=== PATIENT | female | born 1980 | race Two or more races ===

== ENCOUNTER 2020-08-04 16:12 | Emergency (ER) | payer SELFPAY ==
--- NOTE | 2020-08-04 17:43 | ED_ITS ---
HPI - General Adult General Chief complaint: Wound/Laceration <AZALIA Knight Last Filed: 08/04/20 18:24> Stated complaint: Suture Removal <AZALIA Knight Last Filed: 08/04/20 18:24> Time Seen by Provider: 08/04/20 17:42 <AZALIA Knight Last Filed: 08/04/20 18:24> Source: patient <AZALIA Knight Last Filed: 08/04/20 18:24> Mode of arrival: ambulatory <AZALIA Knight Last Filed: 08/04/20 18:24> Limitations: no limitations <AZALIA Knight Last Filed: 08/04/20 18:24> History of Present Illness HPI narrative: Had jose placed 10 days ago in head. No complaints. Here for removal. <AZALIA Knight Last Filed: 08/04/20 18:24> Onset (ago): week(s) <AZALIA Knight Last Filed: 08/04/20 18:24> Location: head <AZALIA Knight Last Filed: 08/04/20 18:24> Radiation: non-radiation <AZALIA Knight Last Filed: 08/04/20 18:24> Associated symptoms: denies other symptoms <AZALIA Knight Last Filed: 08/04/20 18:24> Related Data Allergies/adverse reactions: Allergies Allergy/AdvReac Type Severity Reaction Status Date / Time animal dander [PET DANDER] Allergy Unknown UNKNOWN Verified 08/04/20 17:54 FRUIT,FRESH Allergy Unknown THROAT ITCH Uncoded 07/17/20 16:19 nuts/ peanuts Allergy Unknown per Uncoded 06/22/19 00:00 allergy testing pollen/dust Allergy Unknown per Uncoded 06/22/19 00:00 allergy testing seasonal Allergy Unknown per Uncoded 06/22/19 00:00 allergy testing seasonal /fruits/ vegetables Allergy Unknown Unknown Uncoded 08/04/20 17:54 SEASONAL ALLERGIES Allergy Unknown UNKNOWN Uncoded 07/17/20 16:19 <Kajal Chopra NP - Last Filed: 08/04/20 18:24> Review of Systems Review of Systems: Yes all other systems are reviewed and are negative <Kajal Chopra NP - Last Filed: 08/04/20 18:24> Constitutional: Constitutional: Reports no additional constitutional complaints, Denies chills, Denies fever(s) and Denies weakness <Kajal Chopra NP - Last Filed: 08/04/20 18:24> Eyes: Eyes: Reports no additional eye complaints and Denies change in vision <Kajal Chopra NP - Last Filed: 08/04/20 18:24> ENT: Reports system reviewed and no additional complaints, except as documented, Denies nasal congestion and Denies nasal discharge <Kajal barton NP - Last Filed: 08/04/20 18:24> Cardiovascular: Cardiovascular: Reports no additional cardiovascular comp laints, Denies chest pain, Denies leg edema and Denies dyspnea <Kajal Chopra NP - Last Filed: 08/04/20 18:24> Respiratory: Respiratory: Reports no additional respiratory complaints, Denies cough and Denies dyspnea <Kajal Chopra NP - Last Filed: 08/04/20 18:24> Gastrointestinal: Gastrointestinal: Reports no additional gastrointestinal complaints, Denies abdominal pain, Denies diarrhea, Denies nausea and Denies vomiting <Kajal Chopra NP - Last Filed: 08/04/20 18:24> Musculoskeletal: Musculoskeletal: Reports no additional musculoskeletal complaints, Denies numbness and Denies tingling <Kajal Chopra NP - Last Filed: 08/04/20 18:24> Integumentary/Breasts: Skin/Breast: Reports system reviewed and no additional complaints, except as docu and Denies rash <Kajal Chopra NP - Last Filed: 08/04/20 18:24> Neurologic: Reports system reviewed and no additional complaints, except as documented, Denies numbness, Denies tingling and Denies weakness <Kajal Chopra NP - Last Filed: 08/04/20 18:24> PMFSH Past Medical History Attestation statement: The following information was validated with the patient. <Kajal Chopra NP - Last Filed: 08/04/20 18:24> Source: obtained from family and nursing notes reviewed <Kajal Chopra NP - Last Filed: 08/04/20 18:24> Social History Social History: Social History Advance Directives: No Advance Directives Information Provided: Yes <Kajal Chopra NP - Last Filed: 08/04/20 18:24> Physical Exam Vital Signs and I&O and Narrative: Vital Signs and I&O: Vital Signs Temp 97.6 F 08/04/20 17:55 Pulse 91 08/04/20 17:55 Resp 16 08/04/20 17:55 BP 136/79 08/04/20 17:55 Pulse Ox 99 08/04/20 17:55 Intake & Output 08/04/20 08/04/20 08/05/20 06:59 18:59 06:59 Weight 75.75 kg Body Mass Index 36.1 <Kajal Chopra NP - Last Filed: 08/04/20 18:24> Vital Signs and I&O: Vital Signs Temp 97.6 F 08/04/20 17:55 Pulse 91 08/04/20 17:55 Resp 16 08/04/20 17:55 BP 136/79 08/04/20 17:55 Pulse Ox 99 08/04/20 17:55 Intake & Output 08/04/20 08/04/20 08/05/20 06:59 18:59 06:59 Weight 75.75 kg Body Mass Index 36.1 <Lane Devi DO - Last Filed: 08/05/20 02:16> Const: General: cooperative, healthy appearing, comfortable and no acute distress <Kajal Chopra NP - Last Filed: 08/04/20 18:24> Orientation/consciousness: patient oriented x3 <Kajal Chopra NP - Last Filed: 08/04/20 18:24> Limitations: no limitations <Kajal Chopra NP - Last Filed: 08/04/20 18:24> HENMT: Head: Yes other (2 jose present occip. no redness, drainage or fluctuance or tenderness ) <Kajal Chopra NP - Last Filed: 08/04/20 18:24> Ears: hearing grossly normal bilaterally <Kajal Chopra NP - Last Filed: 08/04/20 18:24> General nose exam: Normal external nose present <Kajal Chopra NP - Last Filed: 08/04/20 18:24> Face and sinus: Yes normal facial exam <Kajal Chopra NP - Last Filed: 08/04/20 18:24> Mouth: Normal oral and palatal mucosa present <Kajal Chopra NP - Last Filed: 08/04/20 18:24> Throat: Yes posterior oropharynx normal <Kajal Chopra NP - Last Filed: 08/04/20 18:24> Eyes: General: appearance normal, both eyes and all related structures <Kajal Chopra NP - Last Filed: 08/04/20 18:24> Pupils: Equal, round and reactive pupils present <Kajal Chopra NP - Last Filed: 08/04/20 18:24> Neck: Neck: Yes normal visual inspection <Kajal Chopra NP - Last Filed: 08/04/20 18:24> Chest: Chest palpation & inspection: normal inspection of the chest <Kajal Chopra NP - Last Filed: 08/04/20 18:24> Resp: Effort & Inspection: normal respiratory effort <Kajal Chopra NP - Last Filed: 08/04/20 18:24> Cardio: Rate: regular rate <Kajal Chopra NP - Last Filed: 08/04/20 18:24> Rhythm: regular rhythm <Kajal Chopra NP - Last Filed: 08/04/20 18:24> Neuro: General: patient oriented x3 <Kajal Chopra NP - Last Filed: 08/04/20 18:24> Cranial nerves: Yes Equal, round and reactive pupils present <Kajal Chopra NP - Last Filed: 08/04/20 18:24> Procedures Procedure Narrative Procedure Narrative: 2 jose removed from scalp with no issues. <Kajal Chopra NP - Last Filed: 08/04/20 18:24> Discharge Plan Discharge Clinical Impression: Removal of staple <Kajal Chopra NP - Last Filed: 08/04/20 18:24> Patient Disposition: Home, Self-Care <Kajal Chopra NP - Last Filed: 08/04/20 18:24> Instructions: Staple Care (ED) <Kajal Chopra NP - Last Filed: 08/04/20 18:24> Additional Instructions: You may wash your head normal <Kajal Chopra NP - Last Filed: 08/04/20 18:24> Referrals: ED Physician,Generic [Emergency Provider] - 2 days <Kajal Chopra NP - Last Filed: 08/04/20 18:24> Interventions: ED Discharge Assessment Last Done: 08/04/20 18:39 <Kajal Chopra NP - Last Filed: 08/04/20 18:24> Discharge Date/Time: 08/04/20 18:39 <Kajal Chopra NP - Last Filed: 08/04/20 18:24>
[2020-08-04 17:55] VITALS: BP 136/79; PULSE 91; RESP 16; TEMP 36.4; O2SAT 99; BMI 36.1
== END 2020-08-04 18:39 | disposition home or self-care (01) ==
LOC: HO.ED 18:23
DX: Z48.02 Encounter for removal of sutures (principal)
CPT/HCPCS: 99283

== ENCOUNTER 2021-05-07 10:51 | Emergency (ER) | payer OTHER, SELFPAY ==
[2021-05-07 11:00] VITALS: BP 130/81; PULSE 99; RESP 16; TEMP 36.9; O2SAT 98; BMI 36.3
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
[2021-05-07] MEDS: Acetaminophen 325 MG TABLET 975 MG PO (12:46)
[2021-05-07] MEDS: cephALEXin 500 MG CAPSULE PO (12:47)
[2021-05-07] MEDS: Silver Sulfadiazine 1 % Cream 20 GM TUBE 1 APPL TOPICAL (12:47)
== END 2021-05-07 13:25 | disposition home or self-care (01) ==
PROVIDERS: Emergency Provider Emergency Medicine
DX: T20.20XA Burn of second degree of head, face, and neck, unspecified site, initial encounter (principal); T20.10XA Burn of first degree of head, face, and neck, unspecified site, initial encounter; T21.31XA Burn of third degree of chest wall, initial encounter; T21.21XA Burn of second degree of chest wall, initial encounter; X03.3XXA Fall due to controlled fire, not in building or structure, initial encounter; Y93.9 Activity, unspecified; Y92.9 Unspecified place or not applicable; Y99.9 Unspecified external cause status
CPT/HCPCS: 99284

== ENCOUNTER 2021-05-09 08:54 | Emergency (ER) | payer OTHER, SELFPAY ==
[2021-05-09 09:25] VITALS: BP 125/77; PULSE 75; RESP 16; O2SAT 99; BMI 35.9
[2021-05-09] MEDS: oxyCODONE HCl Immed Release 5 MG TABLET PO (09:41)
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
--- NOTE | 2021-05-09 10:18 | PC.NURSE ---
Pt medicae with oxy po at 0941. removed facial suture and applied steri strips to site. Pt states that she has pain medication at home.
== END 2021-05-09 10:19 | disposition home or self-care (01) ==
PROVIDERS: Emergency Provider Emergency Medicine
DX: Z48.02 Encounter for removal of sutures (principal); S01.81XD Laceration without foreign body of other part of head, subsequent encounter; W19.XXXD Unspecified fall, subsequent encounter
CPT/HCPCS: 99283

== ENCOUNTER 2021-05-13 13:38 | Outpatient (RCR) | payer OTHER, SELFPAY | END 2021-06-25 10:47 | disposition home or self-care (01) | LOC: HO.WCC 13:38 | PROVIDERS: Visit Provider Surgery | DX: T21.21XD Burn of second degree of chest wall, subsequent encounter (principal); T31.0 Burns involving less than 10% of body surface | CPT/HCPCS: 16020; 99211; 99212 ==

== ENCOUNTER 2021-05-16 09:47 | Emergency (ER) | payer OTHER, SELFPAY ==
[2021-05-16 09:50] VITALS: BP 120/66; PULSE 98; RESP 16; TEMP 36.4; O2SAT 99; BMI 36.1
[2021-05-16 10:04] VITALS: BP 130/75; PULSE 99; O2SAT 98
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
[2021-05-16] MEDS: Silver Sulfadiazine 1 % Cream 20 GM TUBE 1 APPL TOPICAL (11:44)
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
[2021-05-16] MEDS: Bacitracin Oint 14 GM TUBE 1 APPL TOPICAL (12:14)
== END 2021-05-16 12:18 | disposition home or self-care (01) ==
PROVIDERS: Emergency Provider Emergency Medicine
DX: T20.10XD Burn of first degree of head, face, and neck, unspecified site, subsequent encounter (principal); T21.11XD Burn of first degree of chest wall, subsequent encounter; X02.0XXD Exposure to flames in controlled fire in building or structure, subsequent encounter
CPT/HCPCS: 16020; 99284

== ENCOUNTER 2021-05-18 00:45 | Emergency (ER) | payer OTHER, SELFPAY ==
[2021-05-18 00:48] VITALS: BP 122/74; PULSE 90; RESP 16; TEMP 36.9; O2SAT 100; BMI 36.1
[2021-05-18 01:29] LABS: IDNOW Serial# 08D9AD1C; Strep A Nucleic Acid Negative (Negative)
[2021-05-18 01:37] LABS: COVID-19 Test Negative (Negative); IDNOW Serial# 9DD0AD1C
--- NOTE | 2021-05-18 01:57 | ED_ITS ---
HPI - General Adult General Chief complaint: General Medical Stated complaint: ear/throat pain Time Seen by Provider: 05/18/21 01:57 Source: patient Mode of arrival: ambulatory History of Present Illness HPI narrative: 40-year-old female presents with complaints of right ear and throat pain that started today and patient states has been associated with chills but denies shortness of breath, cough. Related Data Previous Rx's Medication Instructions Recorded bacitracin 1 appl TOPICAL BID #14 g 05/07/21 ibuprofen 600 mg PO Q6H PRN #20 tab 05/07/21 oxycodone-acetaminophen [Percocet] 1 tab PO Q6H PRN #14 tab 05/07/21 silver sulfadiazine [Silvadene] 1 appl TOPICAL BID #50 g 05/07/21 bacitracin 1 appl TOPICAL BID #28 g 05/16/21 Allergies Allergy/AdvReac Type Severity Reaction Status Date / Time animal dander [PET DANDER] Allergy Unknown UNKNOWN Verified 05/16/21 09:50 FRUIT,FRESH Allergy Unknown THROAT ITCH Uncoded 07/17/20 16:19 nuts/ peanuts Allergy Unknown per Uncoded 06/22/19 00:00 allergy testing pollen/dust Allergy Unknown per Uncoded 06/22/19 00:00 allergy testing seasonal Allergy Unknown per Uncoded 06/22/19 00:00 allergy testing seasonal /fruits/ vegetables Allergy Unknown Unknown Uncoded 08/04/20 17:54 SEASONAL ALLERGIES Allergy Unknown UNKNOWN Uncoded 07/17/20 16:19 Review of Systems Review of Systems: Pertinent positives and negatives as stated in HPI 10 point review of systems is otherwise negative. PMFSH Past Medical History Source: nursing notes reviewed Medical History No known health problems Social History Social History Alcohol intake: current Alcohol intake frequency: holidays/special occasions only Patient Tobacco Use Status: Never used Tobacco Advance Directives: No Advance Directives Information Provided: No Patient : No Physical Exam Vital Signs: Vital Signs: Last Vital Signs Temp 98.5 F 05/18/21 00:48 Pulse 90 05/18/21 00:48 Resp 16 05/18/21 00:48 BP 122/74 05/18/21 00:48 Pulse Ox 100 05/18/21 00:48 Body Mass Index 36.1 VITAL SIGNS: Reviewed. GENERAL: Well developed, well nourished, in no acute distress. HEAD: Normocephalic/atraumatic EYES: PERRLA, EOMI EARS: Ext canals without abnormality, TMs non-bulging and non-erythematous NOSE: Nares patent bilateral OROPHARYNX: no oral lesions noted, posterior pharynx erythematous without noted tonsillar enlargement/erythema/exudates NECK: Supple, no adenopathy LUNGS: Normal breath sounds. No adventitious sounds or accessory muscle use. SpO2<100> CARDIOVASCULAR: Regular rate and rhythm without noted murmurs ABDOMEN: Soft, non-tender, non-distended with bowel sounds. SKIN: Inspection of the skin reveals no rashes NEUROLOGIC: Alert and oriented x 4. Strength and sensation to light touch were grossly intact x 4. Course Course Course Narrative: 40-year-old female with history and clinical presentation consistent with pharyngitis. Review of all investigations negative for acute findings and no clinical indication for AOM, retropharyngeal abscess. All results discussed with patient at bedside. Medical Decision Making Lab Data Labs: Lab Results 05/18/21 05/18/21 Range/Units 01:12 01:12 COVID-19 (ALEXIS) Negative (Negative) COVID-19 Clin Com See Note S. pyogenes GrpA EMMANUEL Negative (Negative) Discharge Plan Discharge Clinical Impression: Viral pharyngitis Patient Disposition: Home, Self-Care Instructions: Pharyngitis (ED) Additional Instructions: 1. Resume all home medications as prescribed. 2. Recommend saline gargles (mixed together table salt with warm tap water) gargle for 5 minutes, recommend doing this twice a day for 3 days. 3. [id number] Tylenol/ibuprofen as needed for pain control as well as temperatures greater than 100.4. 4. Follow-up with your primary care provider in the next 2-3 days for re- evaluation and further outpatient management. Return to the ER for acute worsening of your symptoms. Prescriptions: No Action bacitracin 500 unit/gram ointment 1 appl topical BID Qty: 14 RF: 0 ibuprofen 600 mg tablet 600 mg PO Q6H PRN (Reason: pain) Qty: 20 RF: 0 oxycodone-acetaminophen [Percocet] 5-325 mg tablet 1 tab PO Q6H PRN (Reason: pain) Qty: 14 RF: 0 silver sulfadiazine [Silvadene] 1 % cream 1 appl topical BID Qty: 50 RF: 0 bacitracin 500 unit/gram ointment 1 appl topical BID Qty: 28 RF: 1 Referrals: Physician,None [Primary Care Provider] - 2 days
== END 2021-05-18 02:11 | disposition home or self-care (01) ==
PROVIDERS: Emergency Provider Student in an Organized Health Care Education/Training Program
DX: J02.8 Acute pharyngitis due to other specified organisms (principal); Z20.822 Contact with and (suspected) exposure to COVID-19
CPT/HCPCS: 36415; 87635; 87651; 99283

== ENCOUNTER 2021-08-24 14:59 | Emergency (ER) | payer OTHER, SELFPAY ==
[2021-08-24 16:09] VITALS: BP 142/89; PULSE 90; RESP 16; TEMP 36.9; O2SAT 100; BMI 35.6
--- NOTE | 2021-08-24 17:05 | ED_ITS ---
HPI - General Adult General Chief complaint: Allergic Reaction Stated complaint: allergic reaction Source: patient Mode of arrival: ambulatory Limitations: no limitations History of Present Illness HPI narrative: Patient presents to the ED for resolved allergic reaction. Patient states around 13:00 she ate her usual salad with further cheese dressing and chicken from a stop and shop and all the sudden she started having hives on the face, sensation of throat closing, and hives on her arm. Patient states she took Benadryl and symptoms quickly resolved. She does not know if there are any new ingredients placed in salad . Patient pearly denies any itching, rash, shortness of breath, lip swelling, or sensation of throat closing. Related Data Previous Rx's Medication Instructions Recorded bacitracin 500 unit/gram topical 1 appl TOPICAL BID #14 g 05/07/21 ointment ibuprofen 600 mg tablet 600 mg PO Q6H PRN #20 tab 05/07/21 oxycodone-acetaminophen 5 mg-325 1 tab PO Q6H PRN #14 tab 05/07/21 mg tablet (Percocet) silver sulfadiazine 1 % topical 1 appl TOPICAL BID #50 g 05/07/21 cream (Silvadene) bacitracin 500 unit/gram topical 1 appl TOPICAL BID #28 g 05/16/21 ointment diphenhydramine HCl 25 mg capsule 25 mg PO TID PRN #30 cap 08/24/21 (Benadryl) famotidine 20 mg tablet (Pepcid) 20 mg PO BID 7 Days #14 tab 08/24/21 prednisone 20 mg tablet 60 mg PO DAILY 5 Days #15 tab 08/24/21 Allergies Allergy/AdvReac Type Severity Reaction Status Date / Time animal dander [PET DANDER] Allergy Unknown UNKNOWN Verified 05/16/21 09:50 FRUIT,FRESH Allergy Unknown THROAT ITCH Uncoded 07/17/20 16:19 nuts/ peanuts Allergy Unknown per Uncoded 06/22/19 00:00 allergy testing pollen/dust Allergy Unknown per Uncoded 06/22/19 00:00 allergy testing seasonal Allergy Unknown per Uncoded 06/22/19 00:00 allergy testing seasonal /fruits/ vegetables Allergy Unknown Unknown Uncoded 08/04/20 17:54 SEASONAL ALLERGIES Allergy Unknown UNKNOWN Uncoded 07/17/20 16:19 Review of Systems Review of Systems: Yes all other systems are reviewed and are negative Constitutional: Constitutional: Reports as per HPI and Reports no additional constitutional complaints Eyes: Eyes: Reports as per HPI and Reports no additional eye complaints ENT: Reports system reviewed and no additional complaints, except as documented and Reports as per HPI Cardiovascular: Cardiovascular: Reports as per HPI and Reports no additional cardiovascular complaints Respiratory: Respiratory: Reports as per HPI and Reports no additional respiratory complaints Gastrointestinal: Gastrointestinal: Reports as per HPI and Reports no additional gastrointestinal complaints Genitourinary: Genitourinary: Reports no additional female genitourinary complaints and Reports as per HPI Musculoskeletal: Musculoskeletal: Reports no additional musculoskeletal complaints and Reports as per HPI Integumentary/Breasts: Skin/Breast: Reports system reviewed and no additional complaints, except as docu and Reports as per HPI Comments: resolved Allergic reaction Neurologic: Reports system reviewed and no additional complaints, except as documented and Reports as per HPI Psychiatric: Psychiatric: Reports no additional psychiatric complaints and Reports as per HPI [facility] Past Medical History Medical History No known health problems Social History Social History Alcohol intake: current Alcohol intake frequency: holidays/special occasions only Patient Tobacco Use Status: Never used Tobacco Advance Directives: No Advance Directives Information Provided: No Physical Exam Vital Signs: Vital Signs: Last Vital Signs Temp 98.4 F 08/24/21 16:09 Pulse 90 08/24/21 16:09 Resp 16 08/24/21 16:09 BP 142/89 H 08/24/21 16:09 Pulse Ox 100 08/24/21 16:09 Body Mass Index 35.6 Const: General: cooperative, healthy appearing, comfortable, no acute distress, well developed, alert, awake and Physically active Orienta tion/consciousness: patient oriented x3 HENMT: Other: Negative for any lip swelling, eye swelling, tongue swelling, or uvular swelling. Uvula is midline. Patient is speaking in full sentences and not using secondary muscles. Negative for hives on face. Head: Yes normal to inspection, Yes No palpable skull fracture present, Yes normocephalic, Yes atraumatic, No abrasion, No Acrocyanosis present, No Cotter's sign, No contusion, No cranial bruits, No hematoma, No laceration, No occipital foramen tenderness, No palpable skull fracture, No raccoon eyes, No scalp lesion, No scalp tenderness, No Temporal artery tenderness present and No periorbital ecchymosis Eyes: General: appearance normal, both eyes and all related structures Neck: Neck: Yes normal visual inspection, Yes full ROM, Yes no lymphadenopathy, Yes no meningeal signs, Yes trachea midline, Yes supple and No tender Chest: Chest palpation & inspection: normal inspection of the chest and normal palpation of entire chest wall Resp: Effort & Inspection: normal respiratory effort and able to speak in complete sentences Auscultation: clear to auscultation bilaterally Cardio: Jugular venous distension: no JVD Heart sounds: S1 normal heart sound present and S2 normal heart sound present GI: Inspection: Yes normal to inspection and No abdominal wall ecchymosis Palpation (GI): Soft to palpation, not firm, nontender, no guarding and not rigid : General: No CVA tenderness and Yes no CVA tenderness Back/Spine/Pelvis: Back: no CVA tenderness, No CVA tenderness and No back tenderness Skin: Other: Negative for any hives. Patient states hives completely resolved after taking Benadryl General skin exam: no rashes or lesions noted and elasticity normal Neuro: General: patient oriented x3, gait normal, no meningeal signs and CN's II-XI intact bilaterally Cranial nerves: Yes CN's II-XII intact bilaterally Extrem: General: Yes normal to inspection and Yes full ROM Psych: Appearance: grossly normal, well kempt and not disheveled Course Course Course Narrative: Resolved allergic reaction Reevaluation(s) Reevaluation #1: Patient will be discharged with Benadryl, Pepcid, and steroids Time: 17:17 Medical Decision Making [facility] Narrative Medical decision making narrative: Allergic reaction Discharge Plan Discharge Clinical Impression: Allergic reaction Patient Disposition: Home, Self-Care Instructions: General Allergic Reaction (ED) Additional Instructions: You will be discharged with Benadryl, Pepcid, and steroids. Please follow-up with primary care provider. Return to ED immediately for any shortness of breath, lip swelling, tongue swelling, eye swelling, worsening rash, fever, chest pain chills, any other concerning symptoms. Prescriptions: New diphenhydramine HCl [Benadryl] 25 mg capsule 25 mg PO TID PRN (Reason: allergic reaction) Qty: 30 RF: 0 prednisone 20 mg tablet 60 mg PO DAILY 5 Days Qty: 15 RF: 0 famotidine [Pepcid] 20 mg tablet 20 mg PO BID 7 Days Qty: 14 RF: 0 No Action bacitracin 500 unit/gram ointment 1 appl topical BID Qty: 14 RF: 0 ibuprofen 600 mg tablet 600 mg PO Q6H PRN (Reason: pain) Qty: 20 RF: 0 oxycodone-acetaminophen [Percocet] 5-325 mg tablet 1 tab PO Q6H PRN (Reason: pain) Qty: 14 RF: 0 silver sulfadiazine [Silvadene] 1 % cream 1 appl topical BID Qty: 50 RF: 0 bacitracin 500 unit/gram ointment 1 appl topical BID Qty: 28 RF: 1 Stand Alone Forms: Work/School Release Print Language: Setswana
== END 2021-08-24 17:41 | disposition home or self-care (01) ==
PROVIDERS: Emergency Provider Internal Medicine
DX: T78.40XA Allergy, unspecified, initial encounter (principal); X58.XXXA Exposure to other specified factors, initial encounter
CPT/HCPCS: 99283

== ENCOUNTER 2024-04-06 09:39 | Outpatient (AMB) | payer OTHER, SELFPAY ==
[2024-04-06 10:04] VITALS: BP 110/60; PULSE 80; TEMP 36.1; O2SAT 99; BMI 35.5
--- NOTE | 2024-04-06 10:04 | AM.OFFWIN_ITS ---
Intake Vital Signs 04/06/24 10:04 Height 4 ft 9 in Weight 164 lb BMI 35.5 BP 110/60 Blood Pressure Location Lt brachial Position Sitting Pulse 80 Pulse Source Pulse Oximeter Temp 97.0 F Temp Source Temporal Artery Scan Pulse Oximetry (%) 99 Oxygen Delivery Method Room Air Intake Visit Reasons: EP Congestion/Diff breathing/headache Intake Note: pt is here today for congestion diff breathing headache started 1 week ago Patient Tobacco Use Status: Never used Tobacco Allergies animal dander [PET DANDER] Allergy (Unknown, Verified 04/06/24 10:18) UNKNOWN FRUIT,FRESH Allergy (Unknown, Uncoded 04/06/24 10:18) THROAT ITCH nuts/ peanuts Allergy (Unknown, Uncoded 04/06/24 10:18) per allergy testing pollen/dust Allergy (Unknown, Uncoded 04/06/24 10:18) per allergy testing seasonal Allergy (Unknown, Uncoded 04/06/24 10:18) per allergy testing seasonal /fruits/ vegetables Allergy (Unknown, Uncoded 04/06/24 10:18) Unknown SEASONAL ALLERGIES Allergy (Unknown, Uncoded 04/06/24 10:18) UNKNOWN Medication List - Last Reconciled 04/06/24 by Jia Cardona CNP No Known Home Meds Do you need a note to return to daycare/school/sports/work: No HPI HPI Comments History of Present Illness Details 43-year-old female [facility] [place] for complaint of congestion, difficulty breathing, and headache x1 week. She denies recent travel, exposure to known sick contact or covid. She reports nasal congestion, with maxillary and frontal sinus pressure, problematic cough that wakes her up at night and unable to cough up congestion. She denies fever, but admits to intermittent chills, she denies wheezing, CP, dizziness, abdominal pain, nausea, vomiting, changes in bowels or bladder. REPLACED BY [facility] Medical History No known health problems Social History Alcohol intake: current Alcohol intake frequency: holidays/special occasions only Patient Tobacco Use Status: Never used Tobacco Review of Systems Const All systems reviewed & are unremarkable except as noted in HPI and below Physical Exam Vital Signs: Last Vital Signs Temp 97.0 F 04/06/24 10:04 Pulse 80 04/06/24 10:04 BP 110/60 04/06/24 10:04 Pulse Ox 99 04/06/24 10:04 Oxygen Delivery Method Room Air 04/06/24 10:04 BMI result Body Mass Index 35.5 Const General: cooperative and no acute distress Nutritional Appearance: well nourished Orientation/consciousness: patient oriented x3 Limitations: no limitations HEENT Ears: hearing grossly normal bilaterally and TM's normal bilaterally General nose exam: Abnormal mucous membranes and turbinates present erythematous on the left Face and sinus: Yes sinus tenderness Mouth: moist mucous membranes Throat: Yes posterior oropharynx abnormal (mild erythema ) and Yes postnasal drainage Resp Effort & Inspection: normal respiratory effort, no audible wheezes, Actively coughing Quality: dry, no respiratory distress and not tachypneic Auscultation: clear to auscultation bilaterally, no rhonchi and no wheezes Cardio Jugular venous distension: no JVD Rate: regular rate Rhythm: regular rhythm Heart sounds: S1 normal heart sound present and S2 normal heart sound present GI Palpation (GI): Soft to palpation and nontender Auscultation: normal bowel sounds Skin General skin exam: no rashes or lesions noted and turgor normal Neuro General: patient oriented x3 Psych Appearance: well kempt Mental Status: mental status grossly normal Speech and movement: Normal speech and movement present Affect: normal affect Attitude: cooperative Assessment & Plan Assessment & Plan (1) Upper respiratory infection: Code(s): J06.9 - Acute upper respiratory infection, unspecified Qualifiers: URI type: unspecified URI Qualified Code(s): J06.9 - Acute upper respiratory infection, unspecified Plan: Upper respiratory infection most likely secondary to sinusitis secondary to allergies and increased pollen - Zithromax, 2 tabs po today, followed by 1 tab po x 4 days; encouraged to take with food to reduce GI upset - Encouraged to drink plenty of fluids, maintain hydration - Guaifenesin cough syrup for expectorant - Nasal Saline OTC for sinusitis Will return to walk-in clinic with any worsening or unresolved symptoms Medications: New guaifenesin (Cough Syrup) 200 mg (10 mL) PO Q4H 5 days PRN 1,000 mL 0RF cough J06.9 - Acute upper respiratory infection, unspecified azithromycin (Zithromax) For 250 mg dose pack: take 500 mg today (day 1), then 250 mg for 4 days (days 2-5) PO 5 days 6 tabs 0RF J06.9 - Acute upper respiratory infection, unspecified Discontinued silver sulfadiazine 1% (Silvadene) apply a 1.5 mm thickness Discontinued Reason: Patient no longer taking 1 appl topical BID 50 grams 0RF bacitracin Discontinued Reason: Patient no longer taking 1 appl topical BID 14 grams 0RF ibuprofen Discontinued Reason: Patient no longer taking 600 mg PO Q6H PRN 20 tabs 0RF pain oxycodone-acetaminophen 5-325 mg (Percocet) this medication causes drowsiness, no driving for 6 hours after taking Discontinued Reason: Patient no longer taking 1 tab PO Q6H PRN 14 tabs 0RF pain bacitracin Discontinued Reason: Stopped on Transfer 1 appl topical BID 28 grams 1RF diphenhydramine HCl (Benadryl) Discontinued Reason: Patient no longer taking 25 mg PO TID PRN 30 caps 0RF allergic reaction famotidine (Pepcid) Discontinued Reason: Stopped on Transfer 20 mg PO BID 7 days 14 tabs 0RF prednisone Discontinued Reason: Patient no longer taking 60 mg (3 x 20 mg) PO DAILY 5 days 15 tabs 0RF Coding Level of Care Code Est Pt Level 3 (16698) Diagnoses Upper respiratory tract infection, unspecified type J06.9 URI type: unspecified URI
== END 2024-04-06 10:29 | disposition home or self-care (01) ==
PROVIDERS: PCP Internal Medicine; Visit Provider Nurse Practitioner Acute Care
DX: J06.9 Acute upper respiratory infection, unspecified (principal)
CPT/HCPCS: 99213

== ENCOUNTER 2024-04-27 09:50 | Outpatient (AMB) | payer OTHER, SELFPAY ==
[2024-04-27 10:58] VITALS: BP 108/64; PULSE 74; O2SAT 100; BMI 35.3
--- NOTE | 2024-04-27 10:58 | A.OFFVIS_ITS ---
Vital Signs 04/27/24 10:58 Height 4 ft 9 in Weight 163 lb 2.273 oz BMI 35.3 BP 108/64 Blood Pressure Location Rt brachial Position Sitting Pulse 74 Pulse Source Pulse Oximeter Pulse Oximetry (%) 100 Oxygen Delivery Method Room Air Intake Visit Reasons: Shoulder pain/cm Intake Note: Pt presents today with complaints of bl shoulder pain , worse on right. She has had cortisone injections in the past. Client Insights Consultant Required: No Accompanied by: Daughter Allergies animal dander [PET DANDER] Allergy (Unknown, Verified 04/27/24 11:04) UNKNOWN FRUIT,FRESH Allergy (Unknown, Uncoded 04/27/24 11:04) THROAT ITCH nuts/ peanuts Allergy (Unknown, Uncoded 04/27/24 11:04) per allergy testing pollen/dust Allergy (Unknown, Uncoded 04/27/24 11:04) per allergy testing seasonal Allergy (Unknown, Uncoded 04/27/24 11:04) per allergy testing seasonal /fruits/ vegetables Allergy (Unknown, Uncoded 04/27/24 11:04) Unknown SEASONAL ALLERGIES Allergy (Unknown, Uncoded 04/27/24 11:04) UNKNOWN Medication List - Last Reconciled 04/27/24 by Young Tate MD acetaminophen (Tylenol Extra Strength) 500 mg PO Q6H PRN azithromycin (Zithromax) For 250 mg dose pack: take 500 mg today (day 1), then 250 mg for 4 days (days 2-5) PO 5 days guaifenesin (Cough Syrup) 200 mg (10 mL) PO Q4H PRN 5 days HPI Comments Details: This is a 43-year-old female who presents for evaluation of bilateral shoulder pain, worse on the right. She states that she has had this shoulder pain about 9 years. Worse with activity. She does not recall any trauma or overuse of her shoulder. She stated that she has to PT in the past and it never helped. Steroid injections provide relief for about 3 months. Her last shoulder injection was about 4 months ago. She tries to space it out as much as possible. She denies any other joint pain or swelling. [facility] Medical History No known health problems Social History Alcohol intake: current Alcohol intake frequency: holidays/special occasions only Patient Tobacco Use Status: Never used Tobacco Review of Systems [facility]ralgias and Reports limited range of motion Physical Exam Vital Signs: Last Vital Signs Pulse 74 04/27/24 10:58 BP 108/64 04/27/24 10:58 Pulse Ox 100 04/27/24 10:58 Oxygen Delivery Method Room Air 04/27/24 10:58 BMI result Body Mass Index 35.3 Const General: cooperative, healthy appearing and comfortable Nutritional Appearance: obese Orientation/consciousness: patient oriented x3 Limitations: no limitations HEENT Head: Yes normocephalic and Yes atraumatic Mouth: moist mucous membranes Resp Effort & Inspection: normal respiratory effort and able to speak in complete sentences Auscultation: clear to auscultation bilaterally Neuro General: patient oriented x3 Extrem Other: No active synovitis Nailfold capillaroscopy Normal range of motion of both shoulders Positive empty can test on the right Positive lift-off test on the right Negative infraspinatus test bilaterally Negative Speed's test bilaterally No knee pain with full flexion-extension Office Procedures Joint Injection/Drain Joint Injection/Drain Primary Site: right shoulder Prep: site was prepped using sterile technique and ethochloride spray was applied Injected: 40 mg of, Kenalog, with 1 mL of and 1% plain lidocaine Approach Used: posterolateral Procedure: The patient tolerated the procedure well Coding Details: Patient's consent. The right shoulder was prepped ChloraPrep and alcohol. The subacromial space was injected with 40 mg of triamcinolone and 1 cc of lidocaine. Patient tolerated the procedure well no apparent immediate side effects. 25930 - Large joint Procedure code (CPT) selection complete Assessment & Plan Assessment & Plan (1) Subacromial bursitis of right shoulder joint: Code(s): M75.51 - Bursitis of right shoulder Category: Medical Plan: This is a 43-year-old female who presents for evaluation of right shoulder pain. She states that she has had right shoulder pain since approximately 2014. She has gone to PT in the past and it never helped. Steroid injection helped for approximately 3 months. Last injection was done about 4 years ago. Requesting right shoulder injection. With patient's consent, right shoulder was injected with Kenalog today. Follow-up as needed Plan I spent 13 minutes reviewing patient's chart, evaluating patient, ordering diagnostic workup, counseling patient and documenting in the chart Orders: Orders AMB Joint Injection/Aspiration Today M75.51 - Bursitis of right shoulder Coding Level of Care Code Est Pt Level 3 (16283) Diagnoses Subacromial bursitis of right shoulder joint M75.51 CPT Codes Coding - 29020 Large joint: 63487 - Large joint ([id number])
== END 2024-04-27 11:40 | disposition home or self-care (01) ==
PROVIDERS: PCP Internal Medicine; Visit Provider Student in an Organized Health Care Education/Training Program
DX: M75.51 Bursitis of right shoulder (principal)
CPT/HCPCS: 20610; 99213

== ENCOUNTER → 2024-04-27 09:50 | Outpatient (BNVA) | payer OTHER, SELFPAY | PROVIDERS: PCP Internal Medicine; Visit Provider Student in an Organized Health Care Education/Training Program | DX: M75.51 Bursitis of right shoulder (principal) | CPT/HCPCS: 20610; 99212 ==

== ENCOUNTER 2024-06-27 17:17 | Emergency (ER) | payer OTHER, SELFPAY ==
--- NOTE | ~2024-06-27 | CT_ITS ---
EXAMINATION: CT HEAD WITHOUT CONTRAST CLINICAL INFORMATION: Headache. COMPARISON: None. TECHNIQUE: Contiguous axial imaging was performed from the skullbase to vertex without intravenous administration of contrast. This CT examination was performed using dose optimization techniques as appropriate, variously including the following: *Automated exposure control *Adjustment of mA and/or kV according to patient size (this includes techniques or standardized protocols for targeted exams where dose is matched to indication/reason for exam; i.e. extremities or head) *Use of iterative reconstruction technique DLP: 614 mGy-cm. FINDINGS: There is no evidence of acute intracranial hemorrhage or territorial infarction. No abnormal mass effect or midline shift is seen. Villalba to white matter differentiation is well preserved. No extra-axial fluid collections are identified. The ventricles are normal in size. There is no abnormal attenuation within the brain parenchyma. The osseous structures and soft tissues are normal. The mastoid air cells and visualized portions of the paranasal sinuses are well aerated. CT/CT head/brain wo IV con IMPRESSION: No acute intracranial pathology. Electronically signed by: Shay Van MD 06/27/2024 06:33 PM EDT
[2024-06-27 17:27] VITALS: BP 139/85; PULSE 105; RESP 17; TEMP 36.6; O2SAT 98; BMI 35.5
--- NOTE | 2024-06-27 17:35 | ED.GENADULT ---
HPI - General Adult General Chief complaint: General Medical Stated complaint: swelling and pain head/neck Time Seen by Provider: 06/27/24 21:50 Source: patient, RN notes reviewed and old records reviewed Mode of arrival: ambulatory Limitations: no limitations History of Present Illness ED Provider: Santiago YOUSSEF narrative: 43-year-old female presents for evaluation of left-sided neck pain and headache. Patient reports that last night she had a left posterior headache. This resolved on its own She woke up with pain in her left shoulder, left neck and still has pain to the left side of her head She endorses increased stress. Denies any heavy lifting, falls Denies any fevers, chills. Denies any ear pain, respiratory symptoms No other complaints or concerns at this time Related Data Home Medications ?Medication ?Instructions ?Recorded ?Confirmed acetaminophen 500 mg tablet 500 mg PO Q6H PRN 04/27/24 04/27/24 (Tylenol Extra Strength) Previous Rx's ?Medication ?Instructions ?Recorded azithromycin 250 mg tablet See Rx Instructions PO .COMPLEX 5 04/06/24 (Zithromax) days #6 tabs guaifenesin 100 mg/5 mL oral 200 mg (10 mL) PO Q4H PRN cough 5 04/06/24 liquid (Cough Syrup) days #1,000 mL cyclobenzaprine 10 mg tablet 10 mg PO TID PRN muscle spasm #20 06/27/24 tabs Allergies Allergy/AdvReac Type Severity Reaction Status Date / Time animal dander [PET DANDER] Allergy Unknown UNKNOWN Verified 06/27/24 17:30 FRUIT,FRESH Allergy Unknown THROAT ITCH Uncoded 06/27/24 17:30 nuts/ peanuts Allergy Unknown per Uncoded 06/27/24 17:30 allergy testing pollen/dust Allergy Unknown per Uncoded 06/27/24 17:30 allergy testing seasonal Allergy Unknown per Uncoded 06/27/24 17:30 allergy testing seasonal /fruits/ vegetables Allergy Unknown Unknown Uncoded 06/27/24 17:30 SEASONAL ALLERGIES Allergy Unknown UNKNOWN Uncoded 06/27/24 17:30 Review of Systems Constitutional: Constitutional: Denies body ache(s), Denies chills and Denies fever(s) Eyes: Eyes: Denies blurry vision ENT: Reports neck pain and Denies sore throat Cardiovascular: Cardiovascular: Denies chest pain and Denies dyspnea Respiratory: Respiratory: Denies cough and Denies dyspnea Gastrointestinal: Gastrointestinal: Denies abdominal pain Musculoskeletal: Musculoskeletal: Denies arthralgias, Denies joint swelling, Denies limited range of motion, Reports neck pain, Reports radiating pain into limb and Reports stiffness Integumentary/Breasts: Skin/Breast: Denies rash PMFSH Past Medical History Medical History No known health problems Social History Social History Alcohol intake: current Alcohol intake frequency: holidays/special occasions only Patient Tobacco Use Status: Never used Tobacco Do you have a plan to hurt others: No Plan Physical Exam ED Vital Signs: Vital Signs - 24 hr 06/27/24 17:27 06/27/24 21:49 Temperature 98 F 97.9 F Pulse Rate 105 H 88 Respiratory Rate 17 19 Blood Pressure 139/85 143/97 H Pulse Oximetry 98 99 Oxygen Delivery Method Room Air Room Air BMI result Body Mass Index 35.5 Const General: healthy appearing, comfortable, no acute distress, alert and awake Nutritional Appearance: well nourished Orientation/consciousness: patient oriented x3 HENMT Head: Yes normocephalic and Yes atraumatic Eyes Eyelids: Yes eyelids normal Conjunctivae: conjunctivae normal Sclerae: sclerae normal Corneas: corneas normal Pupils: Equal, round and reactive pupils present EOM: EOMs intact bilaterally Neck Other: Left cervical paraspinous muscle tenderness extending to the left posterior scalp, left trapezius muscle group tenderness. Neck: Yes full ROM Resp Effort & Inspection: normal respiratory effort, able to speak in complete sentences and not labored Skin General skin exam: elasticity normal Neuro General: patient oriented x3 Cranial nerves: Yes Equal, round and reactive pupils present and Yes Bilaterally intact EOM present Cognition (Neuro): normal cognition Extrem Other: Moving all extremities well without any obvious deformities Course Course Course Narrative: This is an RME done by NANCY Araiza: Additional HPI, ROS, PE not included below will be deferred to primary provider. 43 year old male presents w/ pain to top of head, reports woke up with this pain and it goes behind her L ear. reports a/c lightheadedness. Reports she feels tired aswell. Medical Decision Making Medical Decision Making MDM Narrative: 43-year-old female presents for evaluation of left-sided neck and headache. Clinically she has reproducible tenderness, she has full range of motion to the cervical spine but has pain when turning to the left. This is most consistent with a cervical strain/trapezius muscle group strain. CT scan of the brain was unremarkable, labs are unremarkable. We will discharge the patient with cyclobenzaprine and give her a dose of Toradol prior to discharge. Differential Diagnosis Differential Diagnoses: The differential diagnosis associated with the presentation includes Muscle strain Cervical strain Spasmodic torticollis Tension headache Lab Data [facility] Lab Attestation statement: I reviewed the patient's lab results. No leukocytosis. The patient does have a mild anemia that is normocytic. No electrolyte abnormalities. 06/27/24 17:50 06/27/24 17:50 Labs: Lab Results 06/27/24 Range/Units 17:50 WBC 6.2 (4.8-10.8) X10*3/uL RBC 4.16 L (4.20-5.50) X10*6/uL Hgb 11.9 L (12.0-16.0) g/dl Hct 36.8 L (37.0-47.0) % MCV 88.5 (80.0-98.0) fL MCH 28.6 (27.0-33.0) pg MCHC 32.3 (31.0-35.0) g/dl RDW 13.6 (11.0-16.0) % Plt Count 462 H (160-400) X10*3/uL MPV 9.8 (9.4-12.3) fL Immature Gran % (Auto) 0.3 (0.0-0.4) % Neut % (Auto) 67.4 (45-73) % Lymph % (Auto) 23.6 (20-40) % [place] % (Auto) 7.7 (2-11) % Eos % (Auto) 0.5 (0-4) % Baso % (Auto) 0.5 (0-2) % Lymph # (Auto) 1.5 (1.2-4.9) X10*3/uL [place] # (Auto) 0.5 (0.1-1.2) X10*3/uL Eos # (Auto) 0.0 (0.0-0.4) X10*3/uL Baso # (Auto) 0.0 (0.0-0.2) X10*3/uL Abs Immat Gran (auto) 0.02 (0.00-0.03) X10*3/uL Absolute Neuts (auto) 4.2 (2.0-8.3) x10*3/uL Absolute Nucleated RBC 0.000 (0.0-0.012) X10*3/uL Nucleated RBC % (auto) 0.0 (0.0-0.2) /100WBC ESR 7 (0-20) MM/HR Sodium 141 (135-145) mmol/L Potassium 4.5 (3.3-5.1) mmol/L Chloride 108 (96-108) mmol/L Carbon Dioxide 26 (22-29) mmol/L Anion Gap 12 (12-20) BUN 10 (9-16) mg/dL Creatinine 0.73 (0.5-1.4) mg/dL Estim Creat Clear Calc 83.0 Estimated GFR > 60 Random Glucose 107 (60-115) mg/dL Calcium 9.3 (8.4-10.2) mg/dL Magnesium 2.2 (1.6-2.6) mg/dL Total Bilirubin 0.2 (0.0-1.0) mg/dL AST 19 (5-31) U/L ALT 18 (0-31) U/L Alkaline Phosphatase 81 (39-117) U/L C-Reactive Protein 0.43 (< or = 0.50) mg/dL Total Protein 7.1 (6.5-8.0) g/dL Albumin 3.8 (3.5-5.0) g/dL Independent Interpretation I performed an independent interpretation of an: CT Scan Interpretation: CT/CT head/brain wo IV con IMPRESSION: No acute intracranial pathology. Electronically signed by: Shay Van MD 06/27/2024 06:33 PM EDT Discharge Plan Discharge Clinical Impression: Muscle strain of left shoulder region Patient Disposition: Home, Self-Care Instructions: Muscle Strain (ED) Additional Instructions: Your symptoms are most likely related to a muscle strain. I recommend using ibuprofen and Tylenol for pain You may use cyclobenzaprine as needed for muscle spasms This may make you drowsy, do not drink alcohol or drive after taking it I also recommend using warm compresses in you may use the tens unit that you mentioned you have at home Prescriptions: New cyclobenzaprine 10 mg tablet 10 mg PO TID PRN (Reason: muscle spasm) Qty: 20 0RF No Action guaifenesin [Cough Syrup] 100 mg/5 mL liquid 200 mg PO Q4H PRN (Reason: cough) 5 Days Qty: 1000 0RF azithromycin [Zithromax] 250 mg tablet See Rx Instructions PO .COMPLEX 5 Days Qty: 6 0RF Rx Instructions: For 250 mg dose pack: take 500 mg today (day 1), then 250 mg for 4 days (days 2-5) PO acetaminophen [Tylenol Extra Strength] 500 mg tablet 500 mg PO Q6H PRN Print Language: Mongolian
[2024-06-27 17:54] LABS: MANUAL DIFF FLAG NO
[2024-06-27 18:16] LABS: Alanine Aminotransferase 18 U/L (0-31); Albumin Level 3.8 g/dL (3.5-5.0); Alkaline Phosphatase 81 U/L (39-117); Anion Gap 12 (12-20); Aspartate Amino Transferase 19 U/L (5-31); Bilirubin Total 0.2 mg/dL (0.0-1.0); Blood Urea Nitrogen 10 mg/dL (9-16); C Reactive Protein 0.43 mg/dL (< or = 0.50); Calcium 9.3 mg/dL (8.4-10.2); Carbon Dioxide 26 mmol/L (22-29); Chloride 108 mmol/L (96-108); Estimated Glomerular Filt Rate > 60; Glucose Random 107 mg/dL (60-115); Magnesium 2.2 mg/dL (1.6-2.6); Potassium 4.5 mmol/L (3.3-5.1); Sodium 141 mmol/L (135-145); Total Protein 7.1 g/dL (6.5-8.0)
[2024-06-27 18:20] LABS: Basophils Percent Auto 0.5 % (0-2); Eosinophils Percent Auto 0.5 % (0-4); Hematocrit 36.8 % (37.0-47.0); Hemoglobin 11.9 g/dl (12.0-16.0); Imm Gran Abs Auto 0.02 X10*3/uL (0.00-0.03); Imm Gran Pct Auto 0.3 % (0.0-0.4); Lymphocytes Absolute Auto 1.5 X10*3/uL (1.2-4.9); Lymphocytes Percent Auto 23.6 % (20-40); Mean Corpuscular HGB Conc 32.3 g/dl (31.0-35.0); Mean Corpuscular Hemoglobin 28.6 pg (27.0-33.0); Mean Corpuscular Volume 88.5 fL (80.0-98.0); Mean Platelet Volume 9.8 fL (9.4-12.3); Monocytes Absolute Auto 0.5 X10*3/uL (0.1-1.2); Monocytes Percent Auto 7.7 % (2-11); Neutrophils Absolute Auto 4.2 x10*3/uL (2.0-8.3); Neutrophils Percent Auto 67.4 % (45-73); Platelet Count 462 X10*3/uL (160-400); Red Blood Count 4.16 X10*6/uL (4.20-5.50); Red Cell Distribution Width 13.6 % (11.0-16.0); White Blood Count 6.2 X10*3/uL (4.8-10.8)
[2024-06-27 18:47] LABS: Erythrocyte Sedimentation Rate 7 MM/HR (0-20)
[2024-06-27 21:49] VITALS: BP 143/97; PULSE 88; RESP 19; TEMP 36.6; O2SAT 99
[2024-06-27 22:20] VITALS: BP 143/90; PULSE 84; RESP 18; TEMP 36.6; O2SAT 99
[2024-06-27] MEDS: Cyclobenzaprine HCl 10 MG TABLET PO (22:20)
[2024-06-27] MEDS: Ketorolac Tromethamine 30 MG/ML VIAL IM (22:20)
[2024-06-27 22:29] VITALS: BP 143/90; PULSE 84; RESP 18; TEMP 36.6; O2SAT 99
== END 2024-06-27 22:30 | disposition home or self-care (01) ==
PROVIDERS: Physician Assistant; Emergency Provider Emergency Medicine; PCP Internal Medicine
DX: S46.912A Strain of unspecified muscle, fascia and tendon at shoulder and upper arm level, left arm, initial encounter (principal); X58.XXXA Exposure to other specified factors, initial encounter; Y93.9 Activity, unspecified; Y92.9 Unspecified place or not applicable; Y99.9 Unspecified external cause status
CPT/HCPCS: 36415; 70450; 80053; 83735; 85025; 85652; 86140; 96372; 99283; 99284; J1885

== ENCOUNTER 2024-07-31 09:21 | Outpatient (AMB) | payer OTHER, SELFPAY ==
--- NOTE | 2024-07-31 09:42 | MHC.PC.OV ---
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 Intake Note: New patient visit Senior [employer] Developer Required: No Allergies animal dander [PET DANDER] Allergy (Unknown, Verified 07/31/24 09:42) UNKNOWN FRUIT,FRESH Allergy (Unknown, Uncoded 07/31/24 09:42) THROAT ITCH nuts/ peanuts Allergy (Unknown, Uncoded 07/31/24 09:42) per allergy testing pollen/dust Allergy (Unknown, Uncoded 07/31/24 09:42) per allergy testing seasonal Allergy (Unknown, Uncoded 07/31/24 09:42) per allergy testing seasonal /fruits/ vegetables Allergy (Unknown, Uncoded 07/31/24 09:42) Unknown SEASONAL ALLERGIES Allergy (Unknown, Uncoded 07/31/24 09:42) UNKNOWN Tobacco use date assessed: 07/31/24 Dental Screening Dental Screen Date: 07/31/24 Did you have a dental visit in the last 12 months?: No Did you have a dental problem in the last 6 months where you did not have access to dental care?: Yes Was dental information given to patient?: Patient has dentist (on a waiting list) HPI HPI Comments History of Present Illness Details This is a 43-year-old female with a past medical history of shoulder pain, joint and muscle pain, anemia presenting to [facility] care MSK: Continues to have diffuse pain. Shoulders, back, knees hips. She has seen rheumatology. Received injections over the summer. She feels that her body hurts all the time. Family history of arthritis, fibromyalgia. History of anemia. Denies shortness of breath Trouble sleeping -takes advil pm, melatonin prn. ROS see HPI PHYSICAL EXAM: GENERAL: Alert and oriented x 3. NAD EYES: EOMI. Anicteric. HENT: Moist mucous membranes. No scleral icterus. No cervical lymphadenopathy. LUNGS: Clear to auscultation bilaterally. CARDIOVASCULAR: Regular rate and rhythm. No murmur. No JVD. ABDOMEN: Soft, non-tender +bs EXTREMITIES: No edema. Non-tender. SKIN: No rashes or lesions. Warm. NEUROLOGIC: No focal neurological deficits. CN II-XII grossly intact PSYCHIATRIC: Cooperative. 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 1. Little interest or pleasure in doing things: not at all 2. Feeling down, depressed, or hopeless: several days 3. Trouble falling or staying asleep, or sleeping too much: nearly every day 4. Feeling tired or having little energy: more than half the days 5. Poor appetite or overeating: nearly every day 6. Feeling bad about yourself - or that you are a failure or have let yourself or your family down: not at all 7. Trouble concentrating on things, such as reading the newspaper or watching television: not at all 8. Moving or speaking so slowly that other people could have noticed. Or the opposite - being so fidgety or restless that you have been moving around a lot more than usual: not at all 9. Thoughts that you would be better off or of hurting yourself in some way: not at all Total score: 9 Depression Screening Interpretation: Positive Depression Screening Follow-up: New Medication prescribed Depression Screening Done: Yes 95860 - PHQ-9 Billing: Yes Source: Developed by Drs. Alexey Penaloza, Bradley Schafferke and colleagues, with an educational hitesh from [employer]. Thrive Questionnaire I am a: Patient What is your living situation today?: I have a steady place to live Within the past 12 months, did the food you bought not last and you didn't have the money to get more?: Never true Within the past 12 months, did you worry whether your food would run out before you got money to buy more?: Never true Do you have trouble paying for medicines?: I choose not to answer this question Do you have trouble getting transportation to medical appointments?: No Do you have trouble paying your heating and electricity bill?: No Do you have trouble taking care of your child, family member or friend?: No Do you have trouble with day-to-day activities such as bathing, preparing meals, shopping, managing finances, etc.?: No Are you currently unemployed and looking for a job?: No Are you interested in more education?: No Please select the resources that you would like help with: None Currently or been in a relationship where the following occur: No concerns reported THRIVE Score: 0 AUDIT C Alcohol Use Questionnaire (AUDIT-C) 1. How often do you have a drink containing alcohol?: 2-4 times a month 2. How many drinks containing alcohol do you have on a typical day when you are drinking?: 3 or 4 3. How often do you have six or more drinks on one occasion?: Less than monthly Total Score: 4 GADIEL-7 AMB Questionnaire GADIEL-7 Date GADIEL - 7 assessed: 07/31/24 Feeling nervous, anxious, or on edge: 3 = Nearly every day Not being able to stop or control worryin = Several days Worrying too much about different things: 1 = Several days Trouble relaxin = Not at all Being so restless that it is hard to sit still: 0 = Not at all Becoming easily annoyed or irritable: 0 = Not at all Feeling afraid as if something awful might happen: 0 = Not at all Total GADIEL-7 score (0-4 normal; 5-9 mild; 10-14 moderate; 15-21 severe): 5 Source: Developed by Drs. Alexey Penaloza, Bradley Schaffer and colleagues, with an educational hitesh from [employer] GADIEL-7 Assessment Billing GADIEL-7 Assessment Tool: GADIEL-7 Assessment 97442 Physical exam (Primary Care) Vital Signs: Last Vital Signs Temp 98.1 F 07/31/24 09:54 Pulse 72 07/31/24 09:54 Resp 12 07/31/24 09:54 BP 108/82 07/31/24 09:54 Pulse Ox 98 07/31/24 09:54 Oxygen Delivery Method Room Air 07/31/24 09:54 BMI result Body Mass Index 36.5 Tobacco/Smoking Status: Tobacco use Status Tobacco use date assessed 07/31/24 07/31/24 09:45 Patient Tobacco Use Status Never used Tobacco 07/31/24 09:45 e-Cigarette/Vaping Use Never Used 07/31/24 09:45 PHQ-9: PHQ-9 Score PHQ-9: Total score 9 08/13/24 22:30 Depression Screening Interpretation: Positive Depression Screening Follow-up: New Medication prescribed Currently or been in a relationship where the following occur: No concerns reported Coding Level of Care Code Est Pt Level 4 (45610) Complex EM visit Add On G2211 Diagnoses Polyarthralgia M25.50 Fatigue, unspecified type R53.83 Fatigue type: unspecified Additional Codes GADIEL-7 Assessment Billing - GADIEL-7 Assessment Tool: GADIEL-7 Assessment 24147 ([id number]) Assessment & Plan Assessment & Plan (1) Polyarthralgia: Code(s): M25.50 - Pain in unspecified joint Category: Medical Plan: Check labs Discussed trial of cymbalta given fatigue, muscle and joint pain Flexeril as needed before bed (2) Fatigue: Code(s): R53.83 - Other fatigue Category: Medical Qualifiers: Fatigue type: unspecified Qualified Code(s): R53.83 - Other fatigue Plan: aee above. check labs Orders: Orders XR shoulder RT min 2V 08/02/24 D64.9 - Anemia, unspecified, M25.50 - Pain in unspecified joint, M79.7 - Fibromyalgia, M25.511 - Pain in right shoulder, M25.512 - Pain in left shoulder, M54.2 - Cervicalgia, R53.83 - Other fatigue XR cervical spine 4V 08/02/24 D64.9 - Anemia, unspecified, M25.50 - Pain in unspecified joint, M79.7 - Fibromyalgia, M25.511 - Pain in right shoulder, M25.512 - Pain in left shoulder, M54.2 - Cervicalgia, R53.83 - Other fatigue Comprehensive Met. Panel 08/02/24 D64.9 - Anemia, unspecified, M25.50 - Pain in unspecified joint, M79.7 - Fibromyalgia, M25.511 - Pain in right shoulder, M25.512 - Pain in left shoulder, M54.2 - Cervicalgia, R53.83 - Other fatigue Vitamin B12 and Folate 08/02/24 D64.9 - Anemia, unspecified, M25.50 - Pain in unspecified joint, M79.7 - Fibromyalgia, M25.511 - Pain in right shoulder, M25.512 - Pain in left shoulder, M54.2 - Cervicalgia, R53.83 - Other fatigue Lyme IgG/IgM w/reflex to WB 08/02/24 D64.9 - Anemia, unspecified, M25.50 - Pain in unspecified joint, M79.7 - Fibromyalgia, M25.511 - Pain in right shoulder, M25.512 - Pain in left shoulder, M54.2 - Cervicalgia, R53.83 - Other fatigue Lipid Panel 08/02/24 Z13.220 - Encounter for screening for lipoid disorders Complete Blood Count Auto Diff 08/02/24 D64.9 - Anemia, unspecified, M25.50 - Pain in unspecified joint, M79.7 - Fibromyalgia, M25.511 - Pain in right shoulder, M25.512 - Pain in left shoulder, M54.2 - Cervicalgia, R53.83 - Other fatigue XR shoulder LT min 2V 08/02/24 D64.9 - Anemia, unspecified, M25.50 - Pain in unspecified joint, M79.7 - Fibromyalgia, M25.511 - Pain in right shoulder, M25.512 - Pain in left shoulder, M54.2 - Cervicalgia, R53.83 - Other fatigue IRON PROFILE 08/02/24 D64.9 - Anemia, unspecified, M25.50 - Pain in unspecified joint, M79.7 - Fibromyalgia, M25.511 - Pain in right shoulder, M25.512 - Pain in left shoulder, M54.2 - Cervicalgia, R53.83 - Other fatigue TSH reflex Free T4 08/02/24 D64.9 - Anemia, unspecified, M25.50 - Pain in unspecified joint, M79.7 - Fibromyalgia, M25.511 - Pain in right shoulder, M25.512 - Pain in left shoulder, M54.2 - Cervicalgia, R53.83 - Other fatigue Hemoglobin A1c 08/02/24 D64.9 - Anemia, unspecified, M25.50 - Pain in unspecified joint, M79.7 - Fibromyalgia, M25.511 - Pain in right shoulder, M25.512 - Pain in left shoulder, M54.2 - Cervicalgia, R53.83 - Other fatigue Erythrocyte Sedimentation Rate 08/02/24 D64.9 - Anemia, unspecified, M25.50 - Pain in unspecified joint, M79.7 - Fibromyalgia, M25.511 - Pain in right shoulder, M25.512 - Pain in left shoulder, M54.2 - Cervicalgia, R53.83 - Other fatigue Rheumatoid Factor 08/02/24 D64.9 - Anemia, unspecified, M25.50 - Pain in unspecified joint, M79.7 - Fibromyalgia, M25.511 - Pain in right shoulder, M25.512 - Pain in left shoulder, M54.2 - Cervicalgia, R53.83 - Other fatigue CRP High Sensitivity 08/02/24 D64.9 - Anemia, unspecified, M25.50 - Pain in unspecified joint, M79.7 - Fibromyalgia, M25.511 - Pain in right shoulder, M25.512 - Pain in left shoulder, M54.2 - Cervicalgia, R53.83 - Other fatigue VICKEY Reflex Titer and Pattern 08/02/24 D64.9 - Anemia, unspecified, M25.50 - Pain in unspecified joint, M79.7 - Fibromyalgia, M25.511 - Pain in right shoulder, M25.512 - Pain in left shoulder, M54.2 - Cervicalgia, R53.83 - Other fatigue MM screening mammo BI 07/31/24 Z12.31 - Encounter for screening mammogram for malignant neoplasm of breast Medications: New cyclobenzaprine 5 - 10 mg (1 - 2 x 5 mg) PO BEDTIME 60 tabs 1RF 30 days duloxetine then increase to 60mg dose 30 mg PO DAILY 7 caps 0RF duloxetine 60 mg PO DAILY 90 caps 3RF Discontinued cyclobenzaprine Discontinued Reason: Doctor's Order 10 mg PO TID PRN 20 tabs 0RF muscle spasm
[2024-07-31 09:54] VITALS: BP 108/82; PULSE 72; RESP 12; TEMP 36.7; O2SAT 98; BMI 36.5
== END 2024-07-31 10:42 | disposition home or self-care (01) ==
PROVIDERS: PCP Internal Medicine; Visit Provider Internal Medicine
DX: M25.50 Pain in unspecified joint (principal); R53.83 Other fatigue

== ENCOUNTER → 2024-07-31 09:21 | Outpatient (BNVA) | payer OTHER, SELFPAY | PROVIDERS: PCP Internal Medicine; Visit Provider Internal Medicine | DX: M25.50 Pain in unspecified joint (principal); R53.83 Other fatigue | CPT/HCPCS: 96127; 99212 ==

== ENCOUNTER 2024-08-02 08:52 | Outpatient (REF) | payer OTHER, SELFPAY ==
[2024-08-02 09:12] LABS: MANUAL DIFF FLAG NO
[2024-08-02 09:45] LABS: Basophils Percent Auto 0.7 % (0-2); Eosinophils Percent Auto 0.5 % (0-4); Hemoglobin 12.1 g/dl (12.0-16.0); Lymphocytes Absolute Auto 1.3 X10*3/uL (1.2-4.9); Lymphocytes Percent Auto 32.7 % (20-40); Mean Corpuscular HGB Conc 32.7 g/dl (31.0-35.0); Mean Corpuscular Hemoglobin 28.8 pg (27.0-33.0); Mean Corpuscular Volume 88.1 fL (80.0-98.0); Mean Platelet Volume 9.9 fL (9.4-12.3); Monocytes Absolute Auto 0.4 X10*3/uL (0.1-1.2); Monocytes Percent Auto 8.7 % (2-11); Neutrophils Absolute Auto 2.3 x10*3/uL (2.0-8.3); Neutrophils Percent Auto 57.4 % (45-73); Platelet Count 416 X10*3/uL (160-400); Red Cell Distribution Width 14.4 % (11.0-16.0)
[2024-08-02 10:07] LABS: Estimated Average Glucose 100 mg/dL; Hemoglobin A1C 99.3358 umol/L; Hemoglobin A1c % 5.1 % (<6.0); Total Hemoglobin (HGBA1C) 3098.2933 umol/L
[2024-08-02 10:26] LABS: Alanine Aminotransferase 16 U/L (0-31); Albumin Level 3.8 g/dL (3.5-5.0); Alkaline Phosphatase 78 U/L (39-117); Anion Gap 12 (12-20); Aspartate Amino Transferase 16 U/L (5-31); Bilirubin Total 0.3 mg/dL (0.0-1.0); Blood Urea Nitrogen 8 mg/dL (9-16); Calcium 8.9 mg/dL (8.4-10.2); Carbon Dioxide 26 mmol/L (22-29); Chloride 105 mmol/L (96-108); Cholesterol 181 mg/dL (<200); Estimated Glomerular Filt Rate > 60; Glucose Random 82 mg/dL (60-115); HDL Cholesterol 64 mg/dL (>40); Iron 44 mcg/dL (30-160); LDL Cholesterol Calculated 96 mg/dL (<100); Percent Iron Saturation 12 % (15-50); Potassium 3.7 mmol/L (3.3-5.1); Sodium 139 mmol/L (135-145); Total Iron Binding Capacity 372 mcg/dL (228-428); Total Protein 7.3 g/dL (6.5-8.0); Triglycerides 105 mg/dL (<150); Unsaturated Iron Binding 328 ug/dL
[2024-08-02 10:29] LABS: Rheumatoid Factor 101.1 IU/mL (<15.0)
[2024-08-02 10:43] LABS: TSH reflex Free T4 1.04 uIU/mL (0.32-4.0)
[2024-08-02 10:44] LABS: Erythrocyte Sedimentation Rate 16 MM/HR (0-20)
[2024-08-02 10:48] LABS: Folate 13.1 ng/mL (> or = 4.0); Vitamin B12 281 pg/mL (200-900)
[2024-08-04 04:34] LABS: CRP High Sensitivity 4.5 mg/L
[2024-08-04 06:34] LABS: Lyme Abs Screen <0.90 index
[2024-08-06 14:04] LABS: Anti Nuclear Antibody Screen NEGATIVE (NEGATIVE)
== END 2024-08-02 08:53 | disposition home or self-care (01) ==
LOC: HO.XRAY 08:52
PROVIDERS: PCP Internal Medicine; Visit Provider Internal Medicine
DX: D64.9 Anemia, unspecified (principal); M25.50 Pain in unspecified joint; M79.7 Fibromyalgia; M25.511 Pain in right shoulder; M25.512 Pain in left shoulder; M54.2 Cervicalgia; R53.83 Other fatigue; Z13.220 Encounter for screening for lipoid disorders
CPT/HCPCS: 36415; 72050; 73030; 80053; 80061; 82607; 82746; 83036; 83540; 84443; 85025; 85652; 86038; 86141; 86431; 86617; 86618

== ENCOUNTER 2024-08-09 11:23 | Outpatient (REF) | payer OTHER, SELFPAY ==
--- NOTE | ~2024-08-09 | MM_ITS ---
EXAMINATION: MM SCREENING DIGITAL BREAST TOMOSYNTHESIS, BILATERAL CLINICAL INFORMATION: Screening. Asymptomatic. COMPARISON: Mammography: Comparison is made with available priors TECHNIQUE: Digital breast mammography with tomosynthesis is performed in both the craniocaudal and mediolateral oblique views along with computer-aided detection (CAD). FINDINGS: There are scattered areas of fibroglandular density (ACR BI-RADS breast composition Category b). There are no significant masses, abnormal calcifications, or other abnormalities. MM/MM tomosynthesis screening BI IMPRESSION: No mammographic evidence of malignancy. ASSESSMENT: BI-RADS BI-RADS 1 - Negative RECOMMENDATION: Routine annual mammography screening. 1 year F/U This examination should not preclude the clinical evaluation of a suspicious palpable abnormality. This patient's information was entered into a reminder system with a target due date for their next mammogram. Electronically signed by: Chyna Potter DO 08/21/2024 12:14 PM EDT
== END 2024-08-09 11:24 | disposition home or self-care (01) ==
LOC: HO.MAMMO 11:23
PROVIDERS: PCP Internal Medicine; Visit Provider Internal Medicine
DX: Z12.31 Encounter for screening mammogram for malignant neoplasm of breast (principal)
CPT/HCPCS: 77063; 77067

== ENCOUNTER → 2024-08-09 11:30 | Outpatient (BNV) | payer OTHER, SELFPAY | PROVIDERS: PCP Internal Medicine; Visit Provider Internal Medicine | DX: Z12.31 Encounter for screening mammogram for malignant neoplasm of breast (principal) | CPT/HCPCS: 77063; 77067 ==

== ENCOUNTER 2024-10-25 12:38 | Outpatient (AMB) | payer OTHER, SELFPAY ==
--- NOTE | 2024-10-25 12:42 | MHC.OFFVIS ---
Vital Signs 10/25/24 12:47 Height 4 ft 8.69 in Weight 166 lb 14.239 oz BMI 36.5 BP 104/70 Blood Pressure Location Rt brachial Position Sitting Pulse 86 Pulse Source Pulse Oximeter Pulse Oximetry (%) 98 Oxygen Delivery Method Room Air Intake Visit Reasons: Joint Pain Intake Note: Patient presents for joint pain. Allergies animal dander [PET DANDER] Allergy (Unknown, Verified 10/25/24 12:45) UNKNOWN FRUIT,FRESH Allergy (Unknown, Uncoded 07/31/24 09:42) THROAT ITCH nuts/ peanuts Allergy (Unknown, Uncoded 07/31/24 09:42) per allergy testing pollen/dust Allergy (Unknown, Uncoded 07/31/24 09:42) per allergy testing seasonal Allergy (Unknown, Uncoded 07/31/24 09:42) per allergy testing seasonal /fruits/ vegetables Allergy (Unknown, Uncoded 07/31/24 09:42) Unknown SEASONAL ALLERGIES Allergy (Unknown, Uncoded 07/31/24 09:42) UNKNOWN Medication List - Last Reconciled 10/25/24 by Young Tate MD acetaminophen (Tylenol) . cyclobenzaprine 5 - 10 mg (1 - 2 x 5 mg) PO BEDTIME 30 days duloxetine 20 mg PO DAILY ibuprofen-diphenhydramine cit 200-38 mg (Advil PM) 1 cap PO BEDTIME melatonin 10 mg PO BEDTIME PRN HPI Comments Details: Patient returns for re-evaluation. She states that she has been having bilateral shoulder pain. As well as neck pain. Her pains are worse when she is sleeping on her side at night. She states that she gets swelling of her hands and fingers especially at night, morning stiffness lasting 5 minutes. She is unaware of any family history of an autoimmune rheumatic disease. She had 4 pregnancies in total, 1 stillbirth, 1 was breech and 2 healthy children. No abortions or miscarriages. No history of DVT/PE. 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 Current occupational exposures/hazards: No Cognitive needs: No Hearing needs: No Vision needs: No Female Reproductive History Menstrual Total pregnancies: 4 Full term: 2 Review of Systems Musc Reports arthralgias, Reports joint swelling and Reports stiffness Physical Exam Vital Signs: Last Vital Signs Pulse 86 10/25/24 12:47 BP 104/70 10/25/24 12:47 Pulse Ox 98 10/25/24 12:47 Oxygen Delivery Method Room Air 10/25/24 12:47 BMI result Body Mass Index 36.5 Const General: cooperative, healthy appearing and comfortable Nutritional Appearance: obese morbidly obese Orientation/consciousness: patient oriented x3 Limitations: no limitations HEENT Head: Yes normocephalic and Yes atraumatic Mouth: moist mucous membranes Resp Effort & Inspection: normal respiratory effort and able to speak in complete sentences Auscultation: clear to auscultation bilaterally Cardio Rate: regular rate Rhythm: regular rhythm Skin General skin exam: no rashes or lesions noted Neuro General: patient oriented x3 Extrem Other: Normal pain-free range of motion of hands, wrists, elbows and shoulders No active synovitis both hands Normal nailfold capillaroscopy No knee pain with full flexion-extension No knee warmth or swelling bilaterally No ankle swelling or tenderness bilaterally Negative MTP squeeze test Assessment & Plan Assessment & Plan (1) Rheumatoid factor positive: Code(s): R76.8 - Other specified abnormal immunological findings in serum Category: Medical Plan: This is a 43-year-old female with history of fibromyalgia who presents for evaluation of a positive rheumatoid factor in the context of polyarthralgia. Will order comprehensive serology to screen for underlying autoimmune rheumatic disease. Plan I spent 45 minutes reviewing patient's chart, evaluating patient, ordering diagnostic workup, counseling patient and documenting in the chart Orders: Orders Anti Extractable Nuclear Ag Today M32.9 - Systemic lupus erythematosus, unspecified Anti DNA DS Antibody Today M32.9 - Systemic lupus erythematosus, unspecified C Reactive Protein Today M32.9 - Systemic lupus erythematosus, unspecified Erythrocyte Sedimentation Rate Today M32.9 - Systemic lupus erythematosus, unspecified UA w Microscopic Today M32.9 - Systemic lupus erythematosus, unspecified Comprehensive Met. Panel Today M32.9 - Systemic lupus erythematosus, unspecified T Spot TB Today Z11.7 - Encounter for testing for latent tuberculosis infection Cyclic Citrullinated Peptide Today M25.50 - Pain in unspecified joint Complement C3 Today M32.9 - Systemic lupus erythematosus, unspecified Complement C4 Today M32.9 - Systemic lupus erythematosus, unspecified DNA Double Stranded-Crithidia Today M32.9 - Systemic lupus erythematosus, unspecified Protein Creatinine Ratio, Ur Today M32.9 - Systemic lupus erythematosus, unspecified Sjogren's Antibodies Today M32.9 - Systemic lupus erythematosus, unspecified Complete Blood Count Auto Diff Today M32.9 - Systemic lupus erythematosus, unspecified Hepatitis A,B,C Profile Today Z11.59 - Encounter for screening for other viral diseases Hepatitis C Antibody Reflex Today Z11.59 - Encounter for screening for other viral diseases Syphilis Screen Today A53.9 - Syphilis, unspecified Coding Level of Care Code New Pt Level 4 (86458) Diagnoses Rheumatoid factor positive R76.8
[2024-10-25 12:47] VITALS: BP 104/70; PULSE 86; O2SAT 98; BMI 36.5
== END 2024-10-25 13:10 | disposition home or self-care (01) ==
PROVIDERS: PCP Internal Medicine; Visit Provider Student in an Organized Health Care Education/Training Program
DX: R76.8 Other specified abnormal immunological findings in serum (principal)
CPT/HCPCS: 99215

== ENCOUNTER → 2024-10-25 12:38 | Outpatient (BNVA) | payer OTHER, SELFPAY | PROVIDERS: PCP Internal Medicine; Visit Provider Student in an Organized Health Care Education/Training Program | DX: M32.9 Systemic lupus erythematosus, unspecified (principal); M25.50 Pain in unspecified joint; R76.8 Other specified abnormal immunological findings in serum | CPT/HCPCS: 99212 ==

== ENCOUNTER 2024-10-30 10:44 | Outpatient (REF) | payer OTHER, SELFPAY ==
[2024-10-30 11:57] LABS: MANUAL DIFF FLAG NO
[2024-10-30 12:06] LABS: Basophils Percent Auto 0.8 % (0-2); Eosinophils Percent Auto 0.8 % (0-4); Hematocrit 35.6 % (37.0-47.0); Hemoglobin 11.7 g/dl (12.0-16.0); Imm Gran Abs Auto 0.01 X10*3/uL (0.00-0.03); Imm Gran Pct Auto 0.2 % (0.0-0.4); Lymphocytes Absolute Auto 1.6 X10*3/uL (1.2-4.9); Lymphocytes Percent Auto 33.1 % (20-40); Mean Corpuscular HGB Conc 32.9 g/dl (31.0-35.0); Mean Corpuscular Volume 85.2 fL (80.0-98.0); Mean Platelet Volume 9.5 fL (9.4-12.3); Monocytes Absolute Auto 0.6 X10*3/uL (0.1-1.2); Neutrophils Absolute Auto 2.5 x10*3/uL (2.0-8.3); Neutrophils Percent Auto 53.1 % (45-73); Platelet Count 456 X10*3/uL (160-400); Red Blood Count 4.18 X10*6/uL (4.20-5.50); Red Cell Distribution Width 14.9 % (11.0-16.0); White Blood Count 4.8 X10*3/uL (4.8-10.8)
[2024-10-30 12:09] LABS: Appearance Urine Clear; Color Urine Yellow; Glucose Urine UA Negative (Negative); Leukocyte Esterase Urine Negative (Negative); Nitrite Urine Negative (Negative); Specific Gravity - Urine 1.015 (1.005-1.025); UMIC TRIGGER UA YES; Urine Blood Trace (Negative); Urine Ketones Negative (Negative); Urine Protein Negative (Neg-Trace)
[2024-10-30 12:12] LABS: Bacteria Urine 1+ (None Seen); Hyaline Casts Urine 0-2 /LPF (0-2); RBC Urine 0-2 /HPF (0-2); WBC Urine 0-5 /HPF (0-5)
[2024-10-30 12:25] LABS: Alanine Aminotransferase 21 U/L (0-31); Albumin Level 3.6 g/dL (3.5-5.0); Alkaline Phosphatase 85 U/L (39-117); Anion Gap 12 (12-20); Aspartate Amino Transferase 27 U/L (5-31); Bilirubin Total 0.3 mg/dL (0.0-1.0); Blood Urea Nitrogen 9 mg/dL (9-16); C Reactive Protein 0.35 mg/dL (< or = 0.50); Calcium 8.4 mg/dL (8.4-10.2); Carbon Dioxide 26 mmol/L (22-29); Chloride 104 mmol/L (96-108); Estimated Glomerular Filt Rate > 60; Glucose Random 79 mg/dL (60-115); Potassium 4.1 mmol/L (3.3-5.1); Sodium 138 mmol/L (135-145)
[2024-10-30 12:38] LABS: Creatinine Urine 108.61 mg/dL; Protein/Creatinine Ratio, Ur 0.07 (<0.2); Total Protein Urine Random 8 mg/dL (<12)
[2024-10-30 12:53] LABS: Erythrocyte Sedimentation Rate 7 MM/HR (0-20)
[2024-10-30 13:01] LABS: Syphilis Screen Nonreactive (Nonreactive)
[2024-10-30 13:03] LABS: HBc Num1 0.08 S/CO (0.00-0.79); Hepatitis A Antibody IgM 0.17 Index (0-0.79); Hepatitis B Core Antibody Nonreactive (Nonreactive); Hepatitis B Surface Antigen Negative (Negative); ~HepC Num1 0.08 S/CO (0.00-0.79); ~Hepatitis A Antibody IgM Nonreactive (Nonreactive); ~Hepatitis B Surface Antibody NONREACTIVE (Nonreactive); ~Hepatitis C Antibody Nonreactive (Nonreactive)
[2024-11-01 12:08] LABS: Cyclic Citrullinated Peptide <16 UNITS
[2024-11-01 18:09] LABS: Complement C3 117 mg/dL (83-193); TS Negative Control Passed; TS Panel A 0; TS Panel B 0; TS Positive Control Passed; TSpotTB Negative (Negative)
[2024-11-01 20:13] LABS: Anti DNA DS Antibody <1 IU/mL; Antibody to SS-A Antigen <1.0 NEG AI (<1.0 NEG); Antibody to SS-B Antigen <1.0 NEG AI (<1.0 NEG); SM/Ribonucleoprotein Ab <1.0 NEG AI (<1.0 NEG); Smith Protein <1.0 NEG AI (<1.0 NEG)
[2024-11-03 13:48] LABS: DNAds, Crithidia Antibody Negative (Negative)
== END 2024-10-30 10:45 | disposition home or self-care (01) ==
LOC: HO.10HDL 10:44
PROVIDERS: Visit Provider Student in an Organized Health Care Education/Training Program
DX: M32.9 Systemic lupus erythematosus, unspecified (principal); Z11.7 Encounter for testing for latent tuberculosis infection; Z11.59 Encounter for screening for other viral diseases; M25.50 Pain in unspecified joint; A53.9 Syphilis, unspecified
CPT/HCPCS: 36415; 80053; 81001; 82570; 84156; 85025; 85652; 86140; 86160; 86200; 86225; 86235; 86255; 86481; 86704; 86706; 86709; 86780; 86803; 87340

== ENCOUNTER 2024-11-13 11:29 | Outpatient (AMB) | payer OTHER, SELFPAY ==
--- NOTE | 2024-11-13 11:33 | MHC.OFFVIS ---
Vital Signs 11/13/24 11:37 Height 4 ft 8.69 in Weight 168 lb 6.931 oz BMI 36.8 BP 120/72 Blood Pressure Location Rt brachial Position Sitting Pulse 100 Pulse Source Pulse Oximeter Pulse Oximetry (%) 98 Oxygen Delivery Method Room Air Intake Visit Reasons: Joint Pain Intake Note: Patient presents for joint pain. Allergies animal dander [PET DANDER] Allergy (Unknown, Verified 11/13/24 11:36) UNKNOWN FRUIT,FRESH Allergy (Unknown, Uncoded 07/31/24 09:42) THROAT ITCH nuts/ peanuts Allergy (Unknown, Uncoded 07/31/24 09:42) per allergy testing pollen/dust Allergy (Unknown, Uncoded 07/31/24 09:42) per allergy testing seasonal Allergy (Unknown, Uncoded 07/31/24 09:42) per allergy testing seasonal /fruits/ vegetables Allergy (Unknown, Uncoded 07/31/24 09:42) Unknown SEASONAL ALLERGIES Allergy (Unknown, Uncoded 07/31/24 09:42) UNKNOWN Medication List - Last Reconciled 11/13/24 by Young Tate MD acetaminophen (Tylenol) . cyclobenzaprine 5 - 10 mg (1 - 2 x 5 mg) PO BEDTIME 30 days ibuprofen-diphenhydramine cit 200-38 mg (Advil PM) 1 cap PO BEDTIME melatonin 10 mg PO BEDTIME PRN HPI Comments Details: Patient returns for follow-up after completion of her diagnostic workup. She continues to feel about the same LAST VISIT 09/2024: Patient returns for re-evaluation. She states that she has been having bilateral shoulder pain. As well as neck pain. Her pains are worse when she is sleeping on her side at night. She states that she gets swelling of her hands and fingers especially at night, morning stiffness lasting 5 minutes. She is unaware of any family history of an autoimmune rheumatic disease. She had 4 pregnancies in total, 1 stillbirth, 1 was breech and 2 healthy children. No abortions or miscarriages. No history of DVT/PE. 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 Current occupational exposures/hazards: No Cognitive needs: No Hearing needs: No Vision needs: No Review of Systems Const Reports lethargy Musc Reports arthralgias and Reports stiffness Physical Exam Vital Signs: Last Vital Signs Pulse 100 11/13/24 11:37 BP 120/72 11/13/24 11:37 Pulse Ox 98 11/13/24 11:37 Oxygen Delivery Method Room Air 11/13/24 11:37 BMI result Body Mass Index 36.8 Const General: cooperative, healthy appearing and comfortable Nutritional Appearance: obese morbidly obese Orientation/consciousness: patient oriented x3 Limitations: no limitations HEENT Head: Yes normocephalic and Yes atraumatic Mouth: moist mucous membranes Resp Effort & Inspection: normal respiratory effort and able to speak in complete sentences Skin General skin exam: no rashes or lesions noted Neuro General: patient oriented x3 Extrem Other: Normal pain-free range of motion of hands, wrists, elbows and shoulders No active synovitis both hands Normal nailfold capillaroscopy Negative rotator cuff provocative maneuvers bilaterally No knee pain with full flexion-extension No knee warmth or swelling bilaterally No ankle swelling or tenderness bilaterally Negative MTP squeeze test Assessment & Plan Assessment & Plan (1) Rheumatoid factor positive: Code(s): R76.8 - Other specified abnormal immunological findings in serum Category: Medical Plan: This is a 43-year-old female with history of fibromyalgia who presents for evaluation of a positive rheumatoid factor in the context of polyarthralgia. Upon evaluation I do not see any evidence of an autoimmune rheumatic disease, comprehensive serology and inflammatory markers are normal. The significance of her positive rheumatoid factor at this time is unclear Discussed symptoms and signs that are suggestive of an autoimmune rheumatic disease advised patient to return as needed Discussed management of fibromyalgia with patient. Is a noninflammatory, non-autoimmune central afferent processing disorder leading to a diffuse pain syndrome. I suggested that patient try to address her underlying psychiatric issues, anxiety/depression. I suggested evaluation by a therapist and/or a psychiatrist. Patient mentioned that she had history of GWYN that resolved after her gastric bypass. Try to follow sleep hygiene practices. Patient would benefit from increased physical activity, either through formal physical therapy or by joining a gym. Advised patient that she should start activity slowly and increase as tolerated. Consider low-impact exercises such as walking, swimming, aqua therapy stretching, yoga. I provided patient with a booklet on fibromyalgia management Plan I spent 15 minutes reviewing patient's chart, evaluating patient, counseling patient and documenting in the chart Medications: Discontinued duloxetine Discontinued Reason: Patient no longer taking 20 mg PO DAILY 90 caps 1RF Coding Level of Care Code Est Pt Level 3 (03030) Diagnoses Rheumatoid factor positive R76.8
[2024-11-13 11:37] VITALS: BP 120/72; PULSE 100; O2SAT 98; BMI 36.8
== END 2024-11-13 11:58 | disposition home or self-care (01) ==
PROVIDERS: PCP Internal Medicine; Visit Provider Student in an Organized Health Care Education/Training Program
DX: R76.8 Other specified abnormal immunological findings in serum (principal)
CPT/HCPCS: 99213

== ENCOUNTER → 2024-11-13 11:29 | Outpatient (BNVA) | payer OTHER, SELFPAY | PROVIDERS: PCP Internal Medicine; Visit Provider Student in an Organized Health Care Education/Training Program | DX: R76.8 Other specified abnormal immunological findings in serum (principal) | CPT/HCPCS: 99212 ==

== ENCOUNTER 2025-07-04 12:20 | Outpatient (AMB) | payer OTHER, SELFPAY ==
[2025-07-04 13:02] VITALS: BP 104/80; PULSE 86; RESP 15; TEMP 36.8; O2SAT 100; BMI 38.1
--- NOTE | 2025-07-04 13:02 | A.OFFPC_ITS ---
Vital Signs 07/04/25 13:02 Height 4 ft 8 in Weight 170 lb BMI 38.1 BP 104/80 Blood Pressure Location Rt brachial Position Sitting Respiration 15 Pulse 86 Pulse Source Pulse Oximeter Temp 98.2 F Temp Source Oral Pulse Oximetry (%) 100 Oxygen Delivery Method Room Air Intake Visit Reasons: New PT/transfer from [facility]. Intake Note: Pt is here today as a transfer patient from [facility]/ , last mammogram 08/09/24 Is last menstrual period known: Yes Last menstrual period: 06/14/25 Allergies animal dander (PET DANDER) Allergy (Unknown, Verified 07/04/25 13:19) UNKNOWN FRUIT,FRESH Allergy (Unknown, Uncoded 07/04/25 13:19) THROAT ITCH nuts/ peanuts Allergy (Unknown, Uncoded 07/04/25 13:19) per allergy testing pollen/dust Allergy (Unknown, Uncoded 07/04/25 13:19) per allergy testing seasonal Allergy (Unknown, Uncoded 07/04/25 13:19) per allergy testing seasonal /fruits/ vegetables Allergy (Unknown, Uncoded 07/04/25 13:19) Unknown SEASONAL ALLERGIES Allergy (Unknown, Uncoded 07/04/25 13:19) UNKNOWN Medication List - Last Reconciled 07/04/25 by Ange Gupta MD acetaminophen (Tylenol) . cyclobenzaprine 5 - 10 mg (1 - 2 x 5 mg) PO BEDTIME 30 days ibuprofen-diphenhydramine cit 200-38 mg (Advil PM) 1 cap PO BEDTIME Tobacco use date assessed: 07/04/25 Dental Screening Dental Screen Date: 07/04/25 Did you have a dental visit in the last 12 months?: Yes Did you have a dental problem in the last 6 months where you did not have access to dental care?: Yes Was dental information given to patient?: Patient has dentist HPI New PT/transfer from [facility]. HPI Details 44-year-old lady, new to me here today t o establish care with a new PCP and for her annual physical exam, previously was being seen at [facility]. Last cervical cancer screening and pelvic exam on record was in 2016 , done by Jd SERRANO, with negative results She is up-to-date with her screening mammogram, last done July 2024 with benign findings, due again for repeat this July. - Reports muscle pain , with a history of using a TENS machine and heating pads for relief. - Previously diagnosed with anemia, with a hemoglobin level of 11.7 g/dL noted last year. - Rheumatoid arthritis: A positive rheum atoid factor was noted last year, and the patient has been advised to follow up with rheumatology as needed. - Lactose intolerance: Experiences bloat ing and gastrointestinal discomfort after consuming dairy products. - Rash in the umbilical region: Reports a recurrent rash during the summer, suspected to be a yeast infection. - Preventative care: Due for a cervical cancer screening and has a mammogram scheduled for July. 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 1. Little interest or pleasure in doing things: several days 2. Feeling down, depressed, or hopeless: not at all 3. Trouble falling or staying asleep, or sleeping too much: several days 4. Feeling tired or having little energy: more than half the days 5. Poor appetite or overeating: more than half the days 6. Feeling bad about yourself - or that you are a failure or have let yourself or your family down: not at all 7. Trouble concentrating on things, such as reading the newspaper or watching television: not at all 8. Moving or speaking so slowly that other people could have noticed. Or the opposite - being so fidgety or restless that you have been moving around a lot more than usual: not at all 9. Thoughts that you would be better off or of hurting yourself in some way: not at all Total score: 6 Depression Screening Interpretation: Negative Depression Screening Done: Yes 31321 - PHQ-9 Billing: Yes Source: Developed by Drs. Alexey Penaloza, Henrietta Adler, Bradley Coon and colleagues, with an educational hitesh from [employer]. Thrive Questionnaire Date Thrive assessed: 06/28/25 I am a: Patient What is your living situation today?: I have a steady place to live Within the past 12 months, did the food you bought not last and you didn't have the money to get more?: Never true Within the past 12 months, did you worry whether your food would run out before you got money to buy more?: Never true Do you have trouble paying for medicines?: No Do you have trouble getting transportation to medical appointments?: No Do you have trouble paying your heating and electricity bill?: No Do you have trouble taking care of your child, family member or friend?: No Do you have trouble with day-to-day activities such as bathing, preparing meals, shopping, managing finances, etc.?: No Are you currently unemployed and looking for a job?: No Are you interested in more education?: No Please select the resources that you would like help with: None Currently or been in a relationship where the following occur: I choose not to answer THRIVE Score: 0 AUDIT C Alcohol Use Questionnaire (AUDIT-C) 1. How often do you have a drink containing alcohol?: 2-4 times a month 2. How many drinks containing alcohol do you have on a typical day when you are drinking?: 5 or 6 3. How often do you have six or more drinks on one occasion?: Less than monthly Total Score: 5 Score Reviewed/Action Taken: Yes GDAIEL-7 AMB Questionnaire GADIEL-7 Date GADIEL - 7 assessed: 07/04/25 Feeling nervous, anxious, or on edge: 1 = Several days Not being able to stop or control worryin = Not at all Worrying too much about different things: 1 = Several days Trouble relaxin = Several days Being so restless that it is hard to sit still: 1 = Several days Becoming easily annoyed or irritable: 1 = Several days Feeling afraid as if something awful might happen: 1 = Several days Total GADIEL-7 score (0-4 normal; 5-9 mild; 10-14 moderate; 15-21 severe): 6 Source: Developed by Drs. Alexey Penaloza, Henrietta Adler, Bradley Coon and colleagues, with an educational hitesh from [employer]. GADIEL-7 Assessment Billing GADIEL-7 Assessment Tool: GADIEL-7 Assessment 12288 Review of Systems Const Reports as per HPI Eyes Denies change in vision ENT Reports no additional complaints Card Reports no additional complaints Resp Reports no additional complaints GI Details: Reports bloating and discomfort after consuming dairy products, indicating lactose intolerance. Denies heartburn Reports no additional complaints Musc Details: muscle pain exacerbated by touch, uses TENS machine and heating pads for relief Skin/Breast Details: Reports recurrent rash in the umbilical region during summer, suspected to be a yeast infectio Neuro Reports no additional complaints Psych Reports no additional complaints Endo Reports no additional complaints Mitesh/Lymph Reports no additional complaints Aller/Immun Reports no additional complaints Physical exam (Primary Care) Vital Signs: Last Vital Signs Temp 98.2 F 07/04/25 13:02 Pulse 86 07/04/25 13:02 Resp 15 07/04/25 13:02 BP 104/80 07/04/25 13:02 Pulse Ox 100 07/04/25 13:02 Oxygen Delivery Method Room Air 07/04/25 13:02 BMI result Body Mass Index 38.1 Tobacco/Smoking Status: Tobacco use Status Tobacco use date assessed 07/04/25 07/04/25 13:10 Patient Tobacco Use Status Never used Tobacco 07/04/25 13:04 e-Cigarette/Vaping Use Never Used 07/04/25 13:04 PHQ-9: PHQ-9 Score PHQ-9: Total score 6 07/11/25 01:23 Depression Screening Interpretation: Negative Thrive Assessment: Date of Thrive Assessment Date Thrive assessed 06/28/25 07/04/25 13:04 Currently or been in a relationship where the following occur: I choose not to answer Advance Care Planning discussion: Completed/Scanned Date of discussion: 07/04/25 Who was present: Patient Forms completed: Health Care Proxy Time spent: 16-45 minutes Actual minutes spent: 2 Const General: no acute distress and alert Orientation/consciousness: patient oriented x3 HENMT Head: Yes normocephalic Ears: external ears normal, TM's normal bilaterally and EAC's normal General nose exam: Normal external nose present Face and sinus: Yes face symmetric Mouth: Normal oral and palatal mucosa present, oropharynx normal and moist mucous membranes Eyes General: appearance normal, both eyes and all related structures Eyelids: Yes eyelids normal Conjunctivae: conjunctivae normal Sclerae: sclerae normal Pupils: Equal, round and reactive pupils present EOM: EOMs intact bilaterally Neck Neck: Yes full ROM, Yes no lymphadenopathy and Yes supple Thyroid: Thyroid normal Resp Effort & Inspection: normal respiratory effort and able to speak in complete sentences Auscultation: clear to auscultation bilaterally Cardio Rate: regular rate Rhythm: regular rhythm Heart sounds: S1 normal heart sound present and S2 normal heart sound present GI Palpation (GI): Soft to palpation, nontender, no guarding and no masses Auscultation: normal bowel sounds General: Yes no CVA tenderness Back/Spine/Pelvis Back: no CVA tenderness and No back tenderness Skin Rashes: rashes noted (Erythematous rash on hernan-umbilical area) Neuro General: patient oriented x3, gait normal, moves all extremities and no focal motor deficits Cranial nerves: Yes Equal, round and reactive pupils present Cognition (Neuro): normal cognition Gait exam (Neuro): Normal gait present Motor exam (neuro): 5/5 motor strength present throughout Extrem General: Yes normal to inspection, Yes full ROM, Yes no joint enlargement, Yes no pedal edema and Yes normal gait Psych Appearance: grossly normal and well kempt Mental Status: mental status grossly normal Speech and movement: Normal speech and movement present Affect: normal affect Coding Level of Care Code New Pt Prev Care 40-64y(45393) Diagnoses Annual visit for general adult medical examination with abnormal findings Z00.01 Rheumatoid factor positive R76.8 Screening examination for pulmonary tuberculosis Z11.1 Intertrigo L30.4 Polyarthralgia M25.50 Myalgia M79.10 Advance directive discussed with patient Z71.89 Additional Codes GADIEL-7 Assessment Billing - GADIEL-7 Assessment Tool: GADIEL-7 Assessment 87376 ([id number]) PHQ-9 - 16996 - PHQ-9 Billing: Yes ([id number]) Vital Signs *Quality* - Advance Care Planning discussion: Completed/Scanned ([id number]) Vital Signs *Quality* - Time spent: 16-45 minutes ([id number]) Assessment & Plan Assessment & Plan (1) Annual visit for general adult medical examination with abnormal findings: Code(s): Z00.01 - Encounter for general adult medical examination with abnormal findings Plan: Will check appropriate labs. Recommended dental visit every 6 months and regular eye exams, at least every 2 years. Take adequate calcium in diet and vitamin-D 3 at 2000 IU per cap once a day, in addition to weight-bearing exercises to help maintain good muscle tone and weight control. Instructed to do self-breast exam, and up-to-date with her yearly mammogram, due again next month. Referred back to [facility] for her routine Pap and pelvic exam. Reminded to get her yearly flu shot and COVID booster (2) Rheumatoid factor positive: Code(s): R76.8 - Other specified abnormal immunological findings in serum Category: Medical Plan: Rheumatology consult ordered (3) Screening examination for pulmonary tuberculosis: Code(s): Z11.1 - Encounter for screening for respiratory tuberculosis Plan: T spot ordered (4) Intertrigo: Code(s): L30.4 - Erythema intertrigo Plan: Prescription sent for nystatin-triamcinolone cream, to be applied as directed to periumbilical rash (5) Polyarthralgia: Code(s): M25.50 - Pain in unspecified joint Category: Medical (6) Myalgia: Code(s): M79.10 - Myalgia, unspecified site Category: Medical (7) Advance directive discussed with patient: Code(s): Z71.89 - Other specified counseling Plan: Initiated the conversation about Advanced Directives. Advanced Directives help patients prepare for current and future decisions about their medical treatment and place of care. Discussed with patient that it is a process where a patients current condition and prognosis are reviewed, their wishes for information reg arding their illness are elicited, and likely medical dilemmas are presented and options discussed. Healthcare proxy form completed today. The form can be amended as needed, reviewed yearly and make changes as needed Plan - Continue using the TENS machine and heating pads for muscle pain relief. - Incorporate regular exercise into your daily routine. - Avoid dairy products and consider alternatives like almond milk. - Apply nystatin triamcinolone cream to the rash twice daily for 10 days. - referred to [facility] for her routine cervical cancer screening and mammogram appointments. - Plan for a colonoscopy next year at age 45. -rheumatology consult ordered for evaluation of elevated rheumatoid factor accompanied by polyarthralgia, myalgia and easy easy fatigability Patient was informed and verbally consented to the use of an ambient scribe for clinic note documentation during this visit. . Orders: Orders Aspartate Amino Transferase 07/05/25 M25.50 - Pain in unspecified joint, M79.10 - Myalgia, unspecified site, R53.83 - Other fatigue, R76.8 - Other specified abnormal immunological findings in serum, Z13.220 - Encounter for screening for lipoid disorders Basic Metabolic Panel Fasting 07/05/25 M25.50 - Pain in unspecified joint, M79.10 - Myalgia, unspecified site, R53.83 - Other fatigue, R76.8 - Other specified abnormal immunological findings in serum, Z13.220 - Encounter for screening for lipoid disorders Complete Blood Count Auto Diff 07/05/25 M25.50 - Pain in unspecified joint, M79.10 - Myalgia, unspecified site, R53.83 - Other fatigue, R76.8 - Other sp ecified abnormal immunological findings in serum, Z13.220 - Encounter for screening for lipoid disorders Magnesium 07/05/25 M25.50 - Pain in unspecified joint, M79.10 - Myalgia, unspecified site, R53.83 - Other fatigue, R76.8 - Other specified abnormal immunological findings in serum, Z13.220 - Encounter for screening for lipoid disorders Rheumatoid Factor 07/05/25 M25.50 - Pain in unspecified joint, M79.10 - Myalgia, unspecified site, R53.83 - Other fatigue, R76.8 - Other specified abnormal immunological findings in serum, Z13.220 - Encounter for screening for lipoid disorders Erythrocyte Sedimentation Rate 07/05/25 M25.50 - Pain in unspecified joint, M79.10 - Myalgia, unspecified site, R53.83 - Other fatigue, R76.8 - Other specified abnormal immunological findings in serum, Z13.220 - Encounter for screening for lipoid disorders CRP High Sensitivity 07/05/25 M25.50 - Pain in unspecified joint, M79.10 - Myalgia, unspecified site, R53.83 - Other fatigue, R76.8 - Other specified abnormal immunological findings in serum, Z13.220 - Encounter for screening for lipoid disorders T Spot TB 07/05/25 Z11.1 - Encounter for screening for respiratory tuberculosis Alanine Aminotransferase 07/05/25 M25.50 - Pain in unspecified joint, M79.10 - Myalgia, unspecified site, R53.83 - Other fatigue, R76.8 - Other specified abnormal immunological findings in serum, Z13.220 - Encounter for screening for lipoid disorders Lipid Panel 07/05/25 M25.50 - Pain in unspecified joint, M79.10 - Myalgia, unspecified site, R53.83 - Other fatigue, R76.8 - Other specified abnormal immunological findings in serum, Z13.220 - Encounter for screening for lipoid disorders IRON PROFILE 07/05/25 M25.50 - Pain in unspecified joint, M79.10 - Myalgia, unspecified site, R53.83 - Other fatigue, R76.8 - Other specified abnormal immunological findings in serum, Z13.220 - Encounter for screening for lipoid disorders Vitamin D 25-OH Total 07/05/25 M25.50 - Pain in unspecified joint, M79.10 - Myalgia, unspecified site, R53.83 - Other fatigue, R76.8 - Other specified abnormal immunological findings in serum, Z13.220 - Encounter for screening for lipoid disorders TSH reflex Free T4 07/05/25 M25.50 - Pain in unspecified joint, M79.10 - Myalgia, unspecified site, R53.83 - Other fatigue, R76.8 - Other specified abnormal immunological findings in serum, Z13.220 - Encounter for screening for lipoid disorders Referrals TURNING SANDER OPERATOR Referral Z12.4 - Encounter for screening for malignant neoplasm of cervix Rheumatology Referral M25.50 - Pain in unspecified joint, M79.10 - Myalgia, unspecified site, R76.8 - Other specified abnormal immunological findings in serum Medications: New nystatin-triamcinolone 100,000-0.1 unit/g-% 1 appl topical BID 30 grams 0RF 10 days L30.4 - Erythema intertrigo magnesium glycinate 100 mg PO BEDTIME PRN 30 caps 5RF muscle spasm
--- OUTSIDE RECORDS SUMMARY | 2025-07-04 13:44 | XMS_ITS | Clinical Summary ---
Author Organization [employer] Address [address] [place] [address] [address] [place] [address] Care Team Providers Care Firer Tunnel Kiln Name Role Phone Unavailable Primary Care Provider Unavailabl e Social History Tobacco Use Types Packs/Day Years Used Date Smoking Tobacco: Never Assessed Comments Unknown Sex and Gender Information Value Date Recorded Sex Assigned at Female 08/30/2022 10:15 AM EDT Legal Sex Female 10:15 AM EDT Gender Identity Not on file Sexual Orientation Not on file Plan of Treatment Health Maintenance Due Date Last Done Comments Depression Screening 1980 Disability Screening 1980 Alcohol/Substance Use Screening 1992 Tobacco Screening 1992 Family Planning (PISQ) 1995 HPV Vaccines (1 - 3-dose series) 1995 DTaP/Tdap/Td Vaccines (1 - Tdap) 1999 Hepatitis B Vaccines (1 of 3 - 19+ 3-dose series) 1999 Pap Smear 2001 Cervical Cancer Screening 2010 HPV/Cotest 2010 Mammogram 2020 Influenza Vaccine (#1) 2025 , 08/29/2021, 08/21/2019, Additional history exists Zoster Vaccines (1 of 2) 2030 RSV Patients and Patients Aged 60 years or older (1 - 1-dose 75+ series) 2055 Pneumococcal Vaccine: Pediatrics (0 to 5 Years) and At-Risk Patients (6 to 49) Years Aged Out 01/24/2017 No longer eligible based on patient's age to complete this topic COVID-19 Vaccine Completed 07/06/2024, 01/2021, 02/21/2021, Additional history exists HIB Vaccines Aged Out No longer eligi ble based on patient's age to complete this topic Hepatitis A Vaccines Aged Out No long er eligible based on patient's age to complete this topic IPV Vaccines Aged Out No longer eligi ble based on patient's age to complete this topic Meningococcal B Vaccine Aged Out No l onger eligible based on patient's age to complete this topic Meningococcal Vaccine Aged Out No dakota wilian eligible based on patient's age to complete this topic RSV under 20 months Aged Out No longe r eligible based on patient's age to complete this topic Rotavirus Vaccines Aged Out No longer eligible based on patient's age to complete this topic
--- OUTSIDE RECORDS SUMMARY | 2025-07-04 13:44 | XMS_ITS ---
Author Name [facility] Organization Unknown Care Team Organization Name Specialty Phone Email Start Date End [facility] PROVIDER SYSTEM Primary Care 05/03/[id number]
--- OUTSIDE RECORDS SUMMARY | 2025-07-04 13:44 | XMS_ITS | Encounter Summary ---
Author Organization [employer] [facility] Address [address] [place] [address] [address] [place] [address] Care Team Providers Care Weaver Wire Loom Name Role Phone Unavailable Primary Care Provider Unavailabl e Encounter Details Date Type Department Care Team (Latest Contact Info) Description 03/06/2019 Abstract [facility]HC CONVERSIONS Dental, Provider, DDS Social History Tobacco Use Types Packs/Day Years Used Date Smoking Tobacco: Never Assessed Comments Unknown Sex and Gender Information Value Date Recorded Sex Assigned at Female 08/30/2022 10:15 AM EDT Legal Sex Female 10:15 AM EDT Gender Identity Not on file Sexual Orientation Not on file documented as of this encounter Plan of Treatment Not on file documented as of this encounter Visit Diagnoses Not on filedocumented in this encounter
--- OUTSIDE RECORDS SUMMARY | 2025-07-04 13:44 | XMS_ITS | Clinical Summary ---
Author Organization [facility] Address [address] [place] [address] Care Team Providers Care Charcoal Burner Beehive Kiln Name Role Phone System, Provider Not In Primary Care Provider Un available Allergies Active Allergy Reactions Criticality Noted Date Comments Peanuts Anaphylaxis High 12/23/2018 Medications traZODone (DESYREL) 50 MG tablet Take 50 mg by mouth nightly. Active EPINEPHrine 0.3 mg/0.3 mL IJ auto-injection Inject 0.3 mL (0.3 mg total) into the shoulder, thigh, or buttocks once as needed for anaphylaxis. 2 Syringe 12/23/2018 Active oxyCODONE-aceta minophen (PERCOCET) 5-325 mg per tablet Take 1-2 tablets by mouth Every 4 (four) to 6 (six) hours as needed for severe pain. Max Daily Amount: 12 tablets 12 tablet 05/03/2021 Active Immunizations Immunization Administration Dates Next Due Tdap 07/25/2020 Social History Tobacco Use Types Packs/Day Years Used Date Smoking Tobacco: Never Smokeless Tobacco: Never Alcohol Use Standard Drinks/Week Comments Yes 0 (1 standard drink = 0.6 oz pur e alcohol) Comments No Sex and Gender Information Value Date Recorded Sex Assigned at Not on file Legal Sex Female 6:16 PM EST Gender Identity Not on file Sexual Orientation Not on file Last Filed Vital Signs Vital Sign Reading Time Taken Comments Blood Pressure 125/64 05/03/2021 3:03 AM EDT Pulse 93 05/03/2021 3:38 AM EDT Temperature 36.1 C (97 F) 05/03/2021 1:49 AM EDT Respiratory Rate 20 05/03/2021 3:03 AM EDT Oxygen Saturation 99% 05/03/2021 3:03 AM EDT Inhaled Oxygen Concentration - - Weight 80.2 kg (176 lb 12.9 oz) 05/03/2021 1:49 AM EDT Height 144.8 cm (4' 9 ) 05/03/2021 1:49 AM EDT Body Mass Index 38.26 05/03/2021 1:49 AM EDT Plan of Treatment Health Maintenance Due Date Last Done Comments Hepatitis C Virus Screening 1980 HIV Screening 1993 Hepatitis B Vaccines (1 of 3 - 19+ 3-dose series) 1999 Pap Smear (Ages 21-65) 2001 HPV Vaccines (1 - 3-dose SCD M series) 2007 Mammogram 2020 COVID-19 Vaccine ( - 2023-2 5 season) 2024 Influenza Vaccine 05/31/2025 DTaP/Tdap/Td Vaccines (2 - T d or Tdap) 07/25/2030 07/25/2020 Pneumococcal Vaccine: Pediat lynn (0-5 Years) and At-Risk Patients (6 to 49 Years) Aged Out No longer eligible b ased on patient's age to complete this topic Insurance MEDICAID OUT OF STATE [facility] Care Teams Charcoal Burner Beehive Kiln Relationship Specialty Start Date End Date System, Provider Not In PCP - General 12/23/18
== END 2025-07-04 13:54 | disposition home or self-care (01) ==
LOC: HO.HMCC 12:21
PROVIDERS: PCP Internal Medicine; Visit Provider Internal Medicine
DX: Z00.01 Encounter for general adult medical examination with abnormal findings (principal); R76.8 Other specified abnormal immunological findings in serum; Z11.1 Encounter for screening for respiratory tuberculosis; L30.4 Erythema intertrigo; M25.50 Pain in unspecified joint; M79.10 Myalgia, unspecified site; Z71.89 Other specified counseling; Z00.00 Encounter for general adult medical examination without abnormal findings

== ENCOUNTER → 2025-07-04 12:20 | Outpatient (BNVA) | payer OTHER, SELFPAY | PROVIDERS: PCP Internal Medicine; Visit Provider Internal Medicine | DX: Z00.01 Encounter for general adult medical examination with abnormal findings (principal); M79.10 Myalgia, unspecified site; D64.9 Anemia, unspecified; M06.9 Rheumatoid arthritis, unspecified; E73.9 Lactose intolerance, unspecified; R21 Rash and other nonspecific skin eruption; R76.8 Other specified abnormal immunological findings in serum; L30.4 Erythema intertrigo; M25.50 Pain in unspecified joint; Z71.89 Other specified counseling | CPT/HCPCS: 96127; 99386; 99497 ==

== ENCOUNTER 2025-07-05 06:04 | Outpatient (REF) | payer OTHER, SELFPAY ==
--- OUTSIDE RECORDS SUMMARY | 2025-07-05 06:06 | XMS_ITS | Encounter Summary ---
Author Organization [employer] [facility] Address [address] [place] [address] [address] [place] [address] Care Team Providers Care Non Destructive Testing Inspector Name Role Phone Unavailable Primary Care Provider [...]
--- OUTSIDE RECORDS SUMMARY | 2025-07-05 06:07 | XMS_ITS | Clinical Summary ---
Author Organization [employer] Address [address] [place] [address] [address] [place] [address] Care Team Providers Care Dean For Student Affairs Name Role Phone Unavailable Primary Care Provider [...]
--- OUTSIDE RECORDS SUMMARY | 2025-07-05 06:07 | XMS_ITS | Clinical Summary ---
Author Organization Formerly [facility] Address [address] [place] [address] Care Team Providers Care Car Starter Name Role Phone System, Provider Not In [...] this topic Insurance MEDICAID OUT OF STATE [facility] Care Teams Car Starter Relationship Specialty Start Date End Date System, Provider Not In PCP - General 12/23/18
[2025-07-05 06:26] LABS: MANUAL DIFF FLAG NO
[2025-07-05 07:42] LABS: Hematocrit 36.8 % (37.0-47.0); Hemoglobin 11.8 g/dl (12.0-16.0); Imm Gran Abs Auto 0.01 X10*3/uL (0.00-0.03); Imm Gran Pct Auto 0.3 % (0.0-0.4); Lymphocytes Absolute Auto 1.2 X10*3/uL (1.2-4.9); Mean Corpuscular HGB Conc 32.1 g/dl (31.0-35.0); Mean Corpuscular Hemoglobin 28.1 pg (27.0-33.0); Mean Corpuscular Volume 87.6 fL (80.0-98.0); NRBC Abs Auto 0.000 X10*3/uL (0.0-0.012); NRBC Pct Auto 0.0 /100WBC (0.0-0.2); Platelet Count 446 X10*3/uL (160-400); Red Blood Count 4.20 X10*6/uL (4.20-5.50); White Blood Count 3.8 X10*3/uL (4.8-10.8)
[2025-07-05 08:16] LABS: Alanine Aminotransferase 18 U/L (0-31); Anion Gap 12 (12-20); Aspartate Amino Transferase 25 U/L (5-31); Blood Urea Nitrogen 9 mg/dL (9-16); Calcium 8.1 mg/dL (8.4-10.2); Carbon Dioxide 26 mmol/L (22-29); Chloride 106 mmol/L (96-108); Cholesterol 179 mg/dL (<200); Estimated Glomerular Filt Rate > 60; HDL Cholesterol 54 mg/dL (>40); Iron 138 mcg/dL (30-160); Magnesium 2.3 mg/dL (1.6-2.6); Percent Iron Saturation 38 % (15-50); Potassium 3.7 mmol/L (3.3-5.1); Sodium 140 mmol/L (135-145); Total Iron Binding Capacity 363 mcg/dL (228-428); Triglycerides 100 mg/dL (<150); Unsaturated Iron Binding 225 ug/dL
== END 2025-07-05 06:05 | disposition home or self-care (01) ==
LOC: HO.LAB 06:04
PROVIDERS: PCP Internal Medicine; Visit Provider Internal Medicine
DX: Z13.220 Encounter for screening for lipoid disorders (principal); R76.8 Other specified abnormal immunological findings in serum; M25.50 Pain in unspecified joint; R53.83 Other fatigue; M79.10 Myalgia, unspecified site
CPT/HCPCS: 36415; 80048; 80061; 82306; 83540; 83735; 84443; 84450; 84460; 85025; 85652; 86141; 86431; 86481

== ENCOUNTER 2025-07-16 15:28 | Outpatient (REF) | payer OTHER, SELFPAY ==
--- OUTSIDE RECORDS SUMMARY | 2025-07-16 18:51 | XMS_ITS | Encounter Summary ---
Author Organization [facility] Address [address] [place] [address] 7 [place] [address] Care Team Providers Care Blood Bank Laboratory Professional Name Role Phone Unavailable Primary Care Provider [...]
--- OUTSIDE RECORDS SUMMARY | 2025-07-16 18:51 | XMS_ITS | Clinical Summary ---
Author Organization [facility] Address [address] [place] [address] Care Team Providers Care White Sourer Name Role Phone System, Provider Not In [...] 3-dose SCD M series) 2007 Mammogram 2020 Influenza Vaccine 05/31/2025 COVID-19 Vaccine (1 - 2023-2 5 season) 2025 DTaP/Tdap/Td Vaccines (2 - T d or Tdap) 07/25/2030 07/25/2020 Pneumococcal Vaccine: Pediat lynn (0-5 Years) and At-Risk Patients (6 to 49 Years) Aged Out No longer eligible b ased on patient's age to complete this topic Insurance MEDICAID OUT OF STATE [facility] Care Teams White Sourer Relationship Specialty Start Date End Date System, Provider Not In PCP - General 12/23/18
--- OUTSIDE RECORDS SUMMARY | 2025-07-16 18:51 | XMS_ITS | Clinical Summary ---
Author Organization [employer] Address [address] [place] [address] 7 [place] [address] Care Team Providers Care Satellite Tv Technician Installer Name Role Phone Unavailable Primary Care Provider [...]
== END 2025-07-16 15:29 | disposition home or self-care (01) ==
LOC: HO.LAB 15:28
PROVIDERS: PCP Internal Medicine; Visit Provider Internal Medicine
DX: Z11.1 Encounter for screening for respiratory tuberculosis (principal)
CPT/HCPCS: 36415; 86481

== ENCOUNTER 2025-07-31 14:33 | Outpatient (AMB) | payer OTHER, SELFPAY ==
[2025-07-31 14:46] VITALS: BP 122/90; PULSE 98; TEMP 36.7; O2SAT 98; BMI 38.6
--- NOTE | 2025-07-31 14:46 | MHC.OFFWIV ---
Intake Vital Signs 07/31/25 14:46 Height 4 ft 8 in Weight 172 lb BMI 38.6 BP 122/90 H Blood Pressure Location Lt brachial Position Sitting Pulse 98 Pulse Source Pulse Oximeter Temp 98.0 F Temp Source Oral Pulse Oximetry (%) 98 Oxygen Delivery Method Room Air Intake Visit Reasons: EP Lower back pain Intake Note: pt presents with low back pain when standing up after sitting doing an activity 3 days ago Patient Tobacco Use Status: Never used Tobacco Allergies animal dander (PET DANDER) Allergy (Unknown, Verified 07/31/25 14:50) UNKNOWN FRUIT,FRESH Allergy (Unknown, Uncoded 07/04/25 13:19) THROAT ITCH nuts/ peanuts Allergy (Unknown, Uncoded 07/04/25 13:19) per allergy testing pollen/dust Allergy (Unknown, Uncoded 07/04/25 13:19) per allergy testing seasonal Allergy (Unknown, Uncoded 07/04/25 13:19) per allergy testing seasonal /fruits/ vegetables Allergy (Unknown, Uncoded 07/04/25 13:19) Unknown SEASONAL ALLERGIES Allergy (Unknown, Uncoded 07/04/25 13:19) UNKNOWN Do you need a note to return to daycare/school/sports/work: Yes HPI HPI Comments History of Present Illness Details History of Present Illness - The patient is a 44-year-old female presenting with lower back pain radiating to the buttocks and legs x3 days. - The pain began after sitting and pulling drawers, likely irritating the sciatic nerve. - Pain worsens with sitting and is relieved by standing, with pressure noted when standing from a seated position. - Denies any loss of bladder or bowel control. - Has tried otc meds and muscle relaxer with no relief General: cooperative, healthy appearing and comfortable, patient oriented x3 Head: Yes normal to inspection and Yes normocephalic General nose exam: Normal external nose present Face and sinus: Yes normal facial exam Effort & Inspection: normal respiratory effort and able to speak in complete sentences Back/spine: cervical, thoracic and lumbar spine normal to inspection cervical ROM normal, thoracic ROM normal, lumbar ROM normal no Cervical, thoracic or lumbar spine tenderness TTP on bilateral lumbar back Extremities: Straight leg raise test positive on left Neurological: hanny gait 2/2 pain Review of Systems - Musculoskeletal: Reports lower back pain radiating to buttocks and legs left>right, worsened by sitting. - Neurological: Denies loss of bladder or bowel control. All systems reviewed and are unremarkable except as noted in HPI [facility] Medical History (Updated 07/31/25 @ 15:34 by Jaz Llanes PA-C) Myalgia Surgical History (Updated 07/04/25 @ 13:34 by Ange Gupta MD) H/O abdominoplasty H/O gastric bypass Family History Mother HTN (hypertension) Diabetes Father HTN (hypertension) Alzheimer's dementia Other FH: mental illness Social History Housing: House Alcohol intake: current Alcohol intake frequency: holidays/special occasions only Patient Tobacco Use Status: Never used Tobacco e-Cigarette/Vaping Use: Never Used Second Hand Smoke Exposure: No service: No Current occupational status: employed 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 Current occupational exposures/hazards: No Cognitive needs: No Hearing needs: No Vision needs: Yes Physical Exam Vital Signs: Last Vital Signs Temp 98.0 F 07/31/25 14:46 Pulse 98 07/31/25 14:46 BP 122/90 H 07/31/25 14:46 Pulse Ox 98 07/31/25 14:46 Oxygen Delivery Method Room Air 07/31/25 14:46 BMI result Body Mass Index 38.6 Assessment & Plan Assessment & Plan (1) Bilateral low back pain with left-sided sciatica: Code(s): M54.42 - Lumbago with sciatica, left side Qualifiers: Chronicity: acute Qualified Code(s): M54.42 - Lumbago with sciatica, left side Plan: Assessment and Plan Plan - Prescribed prednisone to reduce inflammation and alleviate pain. Advised blood sugars will rise when taking. Discussed risks and benefits of taking prednisone. - Prescribed cyclobenzaprine as a muscle relaxant to aid in sleep and pain management. - Advised to use ice on the affected area for additional relief. - Instructed to monitor for any loss of bladder or bowel control and seek emergency care if it occurs. - Follow up with PCP if no improvement in pain after treatment. Patient was informed and verbally consented to the use of an ambient scribe for clinic note documentation during this visit. Medications: New prednisone 40 mg (2 x 20 mg) PO DAILY 10 tabs 0RF Coding Level of Care Code Est Pt Level 3 (63590) Diagnoses Acute bilateral low back pain with left-sided sciatica M54.42 Chronicity: acute
--- OUTSIDE RECORDS SUMMARY | 2025-07-31 15:43 | XMS_ITS | Encounter Summary ---
Author Organization [facility] Address [address] [place] [address] 7 [place] [address] Care Team Providers Care Binding Cementer French Cord Name Role Phone Unavailable Primary Care Provider [...]
--- OUTSIDE RECORDS SUMMARY | 2025-07-31 15:43 | XMS_ITS | Clinical Summary ---
Author Organization [facility] Address [address] [place] [address] Care Team Providers Care Manager Drug Name Role Phone System, Provider Not In [...] this topic Insurance MEDICAID OUT OF STATE [facility] Care Teams Manager Drug Relationship Specialty Start Date End Date System, Provider Not In PCP - General 12/23/18
--- OUTSIDE RECORDS SUMMARY | 2025-07-31 15:43 | XMS_ITS | Clinical Summary ---
Author Organization [employer] Address [address] [place] [address] [address] [place] [address] Care Team Providers Care Parquet Floor Layer'S Helper Name Role Phone Unavailable Primary Care Provider [...]
== END 2025-07-31 15:46 | disposition home or self-care (01) ==
PROVIDERS: PCP Internal Medicine; Visit Provider Physician Assistant
DX: M54.42 Lumbago with sciatica, left side (principal)

== ENCOUNTER → 2025-07-31 14:33 | Outpatient (BNVA) | payer OTHER, SELFPAY | PROVIDERS: PCP Internal Medicine; Visit Provider Physician Assistant | DX: M54.42 Lumbago with sciatica, left side (principal) | CPT/HCPCS: 99212 ==

== ENCOUNTER 2025-08-06 15:17 | Emergency (ER) | payer OTHER, SELFPAY ==
--- NOTE | ~2025-08-06 | XR_ITS ---
EXAMINATION: XR LUMBOSACRAL SPINE CLINICAL INFORMATION: back pain COMPARISON: None available. TECHNIQUE: Three views of the lumbosacral spine. FINDINGS: There is no scoliosis. There is a normal lordosis. There is no subluxation or malalignment. There are no fractures, compression deformities, or suspicious bone lesions. Disc spaces appear preserved at all levels. There is normal facet alignment and appearance. The SI joints and sacrum appear normal. There are surgical clips in the left upper quadrant. Soft tissues appear normal otherwise. XR/XR lumbar spine 2-3V IMPRESSION: Normal examination of the lumbar spine. Electronically signed by: Sean Armendariz MD 08/06/2025 04:31 PM EDT
[2025-08-06 15:34] VITALS: BP 151/69; PULSE 91; RESP 18; TEMP 37; O2SAT 100; BMI 28.3
--- NOTE | 2025-08-06 15:38 | ED.GENADULT ---
HPI - General Adult General Chief complaint: Back Pain/Injury Stated complaint: lower back pain Time Seen by Provider: 08/06/25 17:04 Source: patient Mode of arrival: ambulatory Limitations: no limitations History of Present Illness ED Provider: Nghia Lai HPI narrative: 44 yold female presents to the ED for back pain that is worse on movement for the past 2 weeks. Patient states pain occured after heavy lifting of furnitirure. patient was prescribed prednisone with cyclobenzaprine with no relief. patient denies any abdominal pain or genital urinary symptoms. Patient denies any recent trauma. Related Data Home Medications ?Medication ?Instructions ?Recorded ?Confirmed acetaminophen [Tylenol] PO 07/31/24 07/04/25 ibuprofen-diphenhydramine citrate 1 cap PO BEDTIME 07/31/24 200 mg-38 mg tablet (Advil PM) Previous Rx's ?Medication ?Instructions ?Recorded cyclobenzaprine 5 mg tablet 5 - 10 mg (1 - 2 x 5 mg) PO 07/31/24 BEDTIME 30 days #60 tabs magnesium glycinate 100 mg PO BEDTIME PRN muscle spasm 07/04/25 #30 caps nystatin-triamcinolone 100,000 1 appl topical BID 10 days #30 07/04/25 unit/g-0.1 % topical cream grams cholecalciferol (vitamin D3) 1,250 1,250 mcg PO QWEEK 3 months #13 07/18/25 mcg (50,000 unit) capsule caps prednisone 20 mg tablet 40 mg (2 x 20 mg) PO DAILY #10 tabs 07/31/25 ketorolac 10 mg tablet 10 mg PO Q6H PRN pain #20 tabs 08/06/25 Allergies Allergy/AdvReac Type Severity Reaction Status Date / Time animal dander (PET DANDER) Allergy Unknown UNKNOWN Verified 08/06/25 15:36 FRUIT,FRESH Allergy Unknown THROAT ITCH Uncoded 08/06/25 15:36 nuts/ peanuts Allergy Unknown per Uncoded 08/06/25 15:36 allergy testing pollen/dust Allergy Unknown per Uncoded 08/06/25 15:36 allergy testing seasonal Allergy Unknown per Uncoded 08/06/25 15:36 allergy testing seasonal /fruits/ vegetables Allergy Unknown Unknown Uncoded 08/06/25 15:36 SEASONAL ALLERGIES Allergy Unknown UNKNOWN Uncoded 08/06/25 15:36 Review of Systems Review of Systems: low back pain Yes all other systems are reviewed and are negative [facility] Past Medical History Medical History (Updated 08/07/25 @ 00:01 by Daniela Luna) Myalgia Surgical History (Updated 07/04/25 @ 13:34 by Ange Gupta MD) H/O abdominoplasty H/O gastric bypass Family History Family History Mother HTN (hypertension) Diabetes Father HTN (hypertension) Alzheimer's dementia Other FH: mental illness Social History Social History Housing: House Alcohol intake: current Alcohol intake frequency: holidays/special occasions only Patient Tobacco Use Status: Never used Tobacco e-Cigarette/Vaping Use: Never Used Second Hand Smoke Exposure: No Advance Directives: Yes Advance Directives on File: Yes Advance Directives Date on File: 07/04/25 service: No Current occupational status: employed 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 Current occupational exposures/hazards: No Cognitive needs: No Hearing needs: No Vision needs: Yes Physical Exam ED Vital Signs: Vital Signs - 24 hr 08/06/25 15:34 Temperature 98.6 F Pulse Rate 91 Respiratory Rate 18 Blood Pressure 151/69 H Pulse Oximetry 100 Oxygen Delivery Method Room Air BMI result Body Mass Index 28.3 Const Orientation/consciousness: patient oriented x3 HENMT Head: Yes normal to inspection, Yes No palpable skull fracture present, Yes normocephalic and Yes atraumatic Eyes General: appearance normal, both eyes and all related structures Neck Neck: Yes normal visual inspection, Yes full ROM, Yes no lymphadenopathy, Yes no meningeal signs, Yes trachea midline, Yes supple, No anterior neck swelling and No tender Chest Chest palpation & inspection: normal inspection of the chest and normal palpation of entire chest wall Resp Effort & Inspection: normal respiratory effort and able to speak in complete sentences Auscultation: clear to auscultation bilaterally Cardio Jugular venous distension: no JVD Heart sounds: S1 normal heart sound present and S2 normal heart sound present GI Inspection: Yes normal to inspection Palpation (GI): Soft to palpation, not firm, nontender, no guarding and not rigid General: Yes no CVA tenderness Back/Spine/Pelvis Back: no CVA tenderness and back tenderness (lumbar) Skin General skin exam: no rashes or lesions noted, elasticity normal and turgor normal Neuro General: patient oriented x3, gait normal, tone normal, moves all extremities, Normal light touch and pain sensation, no meningeal signs, no focal motor deficits and CN's II-XI intact bilaterally Extrem General: Yes normal to inspection, Yes full ROM and Yes capillary refill normal Psych Appearance: grossly normal, well kempt and not disheveled Course Course Course Narrative: RME: 44 year female presents to ED for low back pain that is worse with movement for the past 2 weeks. Patient was lifting something heavy her chest/furniture in her home and while lifting she felt her pain in her back and ever since has had pain. Patient went to urgent Care and they put on steroids and muscle relaxer with no help. Patient has had no imaging of the back. Patient denies any abdominal pain or genitourinary symptoms. Medications Administered Discontinued Medications Generic Name Dose Route Start Last Admin Trade Name Freq PRN Reason Stop Dose Admin Ketorolac Tromethamine 30 mg 08/06/25 17:13 08/06/25 17:36 Ketorolac Tromethamine 30 Mg/Ml Vial IM 08/06/25 17:14 30 mg ONCE ONE Administration Medical Decision Making Medical Decision Making [facility] Narrative: Photophobia year old female presents to ED for back pain that is worse on movement after heavy lifting. Patient denies any abdominal or genitourinary symptoms. Patient denies any flank pain fever or chills. Patient denies any history of IV drug use, immunocompromise diseases, or urinary/bowel incontinence. X-rays came back normal. Patient has prednisone on muscle relaxer. Patient given Toradol and will be discharged with ketorolac. Patient explained worrisome signs informed return to the ED immediately. NOt suspecting caudina equina, epidural abscess, kidney stones, UTI, ectopic , or any other life threatening eitology. Differential Diagnosis Differential Diagnoses: The differential diagnosis associated with the presentation includes (fracutre, dislocation) Admission/Observation Consideration of admission/observation: Escalation of care including admission/observation considered Independent Interpretation I performed an independent interpretation of an: Plain X-Ray Radiology Impression Discussion of test interpretation with radiology: I have reviewed the radiologist's reading. Independent Historian Clinical information obtained from an independent historian. History obtained from or confirmed by: Other (patient) Prescription Management I considered prescription management with: Pain Medication Discharge Plan Discharge Clinical Impression: Back strain Patient Disposition: Home, Self-Care Instructions: Muscle Strain (ED), Back Pain (ED), P.R.I.C.E. Treatment (ED) Additional Instructions: Recommend follow up with the primary care provider. Return to the ED immediately for any worsening back pain, abdominal pain, nausea, vomiting, dysuria, hematuria, flank pain, fever, chills, urinary/bowel incontinence, weakness, dizziness, numbness or genital area, or any other concerning symptoms. Continue taking prednisone and muscle relaxer you were prescribed by previous primary care provider. Ordering Physician: Nghia Lai Date of Service: 08/06/25 Procedure(s): XR lumbar spine 2-3V Accession Number(s): [id number] cc: Nghia Lai; Ange Gupta MD~ Reason for Exam: back pain EXAMINATION: XR LUMBOSACRAL SPINE CLINICAL INFORMATION: back pain COMPARISON: None available. TECHNIQUE: Three views of the lumbosacral spine. FINDINGS: There is no scoliosis. There is a normal lordosis. There is no subluxation or malalignment. There are no fractures, compression deformities, or suspicious bone lesions. Disc spaces appear preserved at all levels. There is normal facet alignment and appearance. The SI joints and sacrum appear normal. There are surgical clips in the left upper quadrant. Soft tissues appear normal otherwise. XR/XR lumbar spine 2-3V IMPRESSION: Normal examination of the lumbar spine. Electronically signed by: Sean Armendariz MD 08/06/2025 04:31 PM EDT Prescriptions: New ketorolac 10 mg tablet 10 mg PO Q6H PRN (Reason: pain) Qty: 20 0RF Rx Instructions: Received 30mg IM toradol in the ED No Action cholecalciferol (vitamin D3) 1,250 mcg (50,000 unit) capsule 1,250 mcg PO QWEEK 90 Days Qty: 13 0RF nystatin-triamcinolone 100,000-0.1 unit/g-% cream 1 appl topical BID 10 Days Qty: 30 0RF magnesium glycinate 100 mg magnesium capsule 100 mg PO BEDTIME PRN (Reason: muscle spasm) Qty: 30 5RF prednisone 20 mg tablet 40 mg PO DAILY Qty: 10 0RF Advil PM 200-38 mg tablet 1 cap PO BEDTIME acetaminophen [Tylenol] PO Rx Instructions: . cyclobenzaprine 5 mg tablet 5 - 10 mg PO BEDTIME 30 Days Qty: 60 1RF Referrals: Ange Gupta MD [Primary Care Provider, Internal Medicine] - 2 days Referral Note: Back pain Clinical Impression: Back strain Stand Alone Forms: Work/School Release Interventions: ED Discharge Assessment Last Done: 08/06/25 17:40 Discharge Date/Time: 08/06/25 17:40 Print Language: Gibraltarian
[2025-08-06 17:40] VITALS: BP 151/69; PULSE 91; RESP 18; TEMP 37; O2SAT 100
--- OUTSIDE RECORDS SUMMARY | 2025-08-06 19:00 | XMS_ITS | Clinical Summary ---
Author Organization [employer] Address [address] [place] [address] 7 [place] [address] Care Team Providers Care Prover Name Role Phone Unavailable Primary Care Provider [...]
--- OUTSIDE RECORDS SUMMARY | 2025-08-06 19:00 | XMS_ITS | Encounter Summary ---
Author Organization [facility] [facility] Address [address] [place] [address] [address] [place] [address] Care Team Providers Care Commercial Art Instructor Name Role Phone Unavailable Primary Care Provider [...]
== END 2025-08-06 17:40 | disposition home or self-care (01) ==
PROVIDERS: Emergency Provider Student in an Organized Health Care Education/Training Program; PCP Internal Medicine
DX: S39.012A Strain of muscle, fascia and tendon of lower back, initial encounter (principal); X50.0XXA Overexertion from strenuous movement or load, initial encounter; Y93.9 Activity, unspecified; Y92.009 Unspecified place in unspecified non-institutional (private) residence as the place of occurrence of the external cause; Y99.9 Unspecified external cause status
CPT/HCPCS: 72100; 96372; 99283; 99284; J1885

== ENCOUNTER → 2025-08-06 15:37 | Outpatient (BNV) | payer OTHER, SELFPAY | PROVIDERS: PCP Internal Medicine; Visit Provider Radiology Diagnostic Radiology | DX: M54.50 Low back pain, unspecified (principal) | CPT/HCPCS: 72100 ==

== ENCOUNTER 2025-08-22 09:02 | Outpatient (REF) | payer OTHER, SELFPAY ==
--- OUTSIDE RECORDS SUMMARY | 2025-08-22 09:52 | XMS_ITS | Clinical Summary ---
Author Organization [employer] Address [address] [place] [address] [address] [place] [address] Care Team Providers Care Grocery Carrier Name Role Phone Unavailable Primary Care Provider [...] Date Last Done Comments Depression Screening 1980 HIV Screening 1980 SDOH Screening 1980 Disability Screening 1980 Alcohol/Substance Use Screening 1992 Tobacco Screening 1992 Family Planning (PISQ) 1995 HPV Vaccines (1 - 3-dose series) 1995 Hepatitis C Screening 1998 DTaP/Tdap/Td Vaccines (1 - Tdap) 1999 Hepatitis [...]
--- OUTSIDE RECORDS SUMMARY | 2025-08-22 09:52 | XMS_ITS | Encounter Summary ---
Author Organization [employer] Address [address] [place] [address] [address] [place] [address] Care Team Providers Care Welding Technician Name Role Phone Unavailable Primary Care Provider [...]
--- OUTSIDE RECORDS SUMMARY | 2025-08-22 09:52 | XMS_ITS | Clinical Summary ---
Author Organization [facility] Address [address] [place] [address] Care Team Providers Care Office Cashier Name Role Phone System, Provider Not In [...] series) 1999 Pap Smear (Ages 21-65) 2001 Mammogram 2020 Influenza Vaccine 05/31/2025 COVID-19 Vaccine (1 - 2023-2 5 season) 2025 DTaP/Tdap/Td Vaccines (2 - T d or Tdap) 07/25/2030 07/25/2020 HPV Vaccines (No Doses Required) Completed Pneumococcal Vaccine: Pediat lynn (0-5 Years) and At-Risk Patients (6 to 49 Years) Aged Out No longer eligible b ased on patient's age to complete this topic Insurance MEDICAID OUT OF STATE [facility] Care Teams Office Cashier Relationship Specialty Start Date End Date System, Provider Not In PCP - General 12/23/18
== END 2025-08-22 09:03 | disposition home or self-care (01) ==
LOC: HO.MAMMO 09:02
PROVIDERS: PCP Internal Medicine; Visit Provider Internal Medicine
DX: Z12.31 Encounter for screening mammogram for malignant neoplasm of breast (principal)
CPT/HCPCS: 77063; 77067

== ENCOUNTER → 2025-08-22 09:30 | Outpatient (BNV) | payer OTHER, SELFPAY | PROVIDERS: PCP Internal Medicine; Visit Provider Radiology Body Imaging | DX: Z12.31 Encounter for screening mammogram for malignant neoplasm of breast (principal) | CPT/HCPCS: 77063; 77067 ==